=== PATIENT | female | born 1950 | race Caucasian/White ===

== ENCOUNTER 2016-10-29 19:17 | Inpatient (IN) | payer MEDICARE, OTHER ==
[~2016-10-29] VITALS: Ht 154.9 cm; Wt 43.1 kg
[2016-10-29] VITALS (7 sets, daily range): BP systolic 89–137; BP diastolic 38–71
--- NOTE | 2016-10-29 19:20 | NUR ---
66 YO FEMALE BB RA FROM SNF. PT IS ALERT X 0, PT IS NON VERBAL, PER EMS THIS IS BASE LINE FOR PATIENT. PER EMS, FAMILY CALLED EMS DUE TO LOW 02 SAT. PT DS TO ER BED, PT GOWNED, PLACED ON COLOR TECHNICIAN. RECTAL TEMP SHOWS 104.9 AND HR OF 120'S. MD BARNETT NOTIFIED. ACTIVATED CODE SEPSIS. NOTED 20G LEFT WRIST IV STARTED BY EMS. AWAITING ORDERS FROM PROVIDER, WILL CONTINUE TO MONITOR
[2016-10-29] MEDS ORDERED: IPRATROPIUM NEB FS 0.5 MG/2.5 ML AMPUL.NEB NEB ONE (19:30)
[2016-10-29] MEDS ORDERED: ACETAMINOPHEN 650 MG/SUPP.RECT RC ONE ×2 (19:30→19:32)
[2016-10-29] MEDS ORDERED: ALBUTEROL FS 2.5 MG/3 ML VIAL.NEB CONTNEB ONE (19:30)
[2016-10-29] MEDS ORDERED: IV NS 0.9% 250 ML IV ONE (19:32)
[2016-10-29] MEDS ORDERED: IV SET PRIMARY 1 EA INFUS.SET MC ONE ×2 (19:32→19:47)
[2016-10-29] MEDS ORDERED: SECONDARY IV SET 1 EA INFUS.SET MC ONE ×2 (19:32→20:39)
[2016-10-29] MEDS ORDERED: IV NS 0.9% 1,000 ML ONE ×2 (19:32→19:47)
[2016-10-29] MEDS ORDERED: IPRATROPIUM NEB FS 0.5 MG/2.5 ML AMPUL.NEB ONE (19:33)
[2016-10-29] MEDS ORDERED: ALBUTEROL FS 2.5 MG/3 ML VIAL.NEB ONE (19:33)
--- NOTE | 2016-10-29 19:40 | NUR ---
MEDICATED PT ORDERED
--- NOTE | 2016-10-29 19:44 | NUR ---
RADIOLOGY TEAM AT BED SIDE FOR X RAY
--- NOTE | 2016-10-29 19:44 | NUR ---
1.5mg atrovent administered per md order. confirmed verbally with md Addendum: 10/29/16 at 1944 by FERNANDA CASILLAS RT Amended: Links added.
[2016-10-29 19:50] LABS: BASOPHILS # (AUTO) 0.5 /CMM (0.0-0.2); BASOPHILS % (AUTO) 3.6 % (0.0-2.0); HEMATOCRIT 38 % (33-45); HEMOGLOBIN 11.6 g/dL (11.5-14.8); LYMPHOCYTES # (AUTO) 1.3 /CMM (0.8-4.8); LYMPHOCYTES % (AUTO) 9.6 % (20.0-44.0); MEAN CORPUSCULAR HEMOGLOBIN 30 PG (26.0-33.0); MEAN CORPUSCULAR HGB CONC 31 g/dl (31.0-36.0); MEAN CORPUSCULAR VOLUME 97 fL (82-100); MONOCYTES # (AUTO) 0.3 /CMM (0.1-1.30); MONOCYTES % (AUTO) 2.1 % (2.0-12.0); NEUTROPHILS # (AUTO) 11.1 /CMM (1.8-8.9); NEUTROPHILS % (AUTO) 84.7 % (43.0-81.0); PLATELET COUNT (AUTO) 296 /CMM (150-450); RDW COEFFICIENT OF VARIATION 14.8 (11.5-15.0); RED BLOOD CELL COUNT(AUTO) 3.87 MIL/uL (4.0-5.2); WHITE BLOOD COUNT (AUTO) 13.2 K/uL (4.3-11.0)
[2016-10-29] MEDS ORDERED: MULT-70 PO (19:52)
[2016-10-29] MEDS ORDERED: ACET-868 PO (19:52)
[2016-10-29] MEDS ORDERED: BISA10SU61 RC (19:52)
[2016-10-29] MEDS ORDERED: FERR-58 PO (19:52)
[2016-10-29] MEDS ORDERED: HEPA500014 SQ (19:52)
[2016-10-29] MEDS ORDERED: LEVE500T9 PO (19:52)
[2016-10-29] MEDS ORDERED: CRAN425C PO (19:52)
[2016-10-29] MEDS ORDERED: INSU100V7 SQ (19:52)
[2016-10-29] MEDS ORDERED: DOCU-25 PO (19:52)
[2016-10-29] MEDS ORDERED: LATA2.5D2 EACHEYE (19:52)
[2016-10-29] MEDS ORDERED: ONDA4TAB5 PO (19:52)
[2016-10-29] MEDS ORDERED: BENA5TAB2 PO (19:52)
[2016-10-29] MEDS ORDERED: SENN8.6T6 PO (19:52)
[2016-10-29] MEDS ORDERED: FAMO20TA8 PO (19:52)
[2016-10-29] MEDS ORDERED: MINO2.5T2 PO (19:52)
[2016-10-29] MEDS ORDERED: MAGN400O6 PO (19:52)
[2016-10-29] MEDS ORDERED: NA P133E RC (19:52)
[2016-10-29] MEDS ORDERED: CLON0.1T PO (19:52)
[2016-10-29] MEDS ORDERED: CARV12.5 PO (19:52)
[2016-10-29] MEDS ORDERED: INDA2.5T5 PO (19:52)
[2016-10-29] MEDS ORDERED: CRAN3875 PO (19:52)
[2016-10-29] MEDS ORDERED: OMEP20CA10 PO (19:52)
[2016-10-29] MEDS ORDERED: IV NS 0.9% 1,000 ML BAG IV ONE ×2 (20:00)
[2016-10-29 20:06] LABS: PROTHROMBIN TIME 10.5 SECS (9.5-12.7)
[2016-10-29 20:07] LABS: ALANINE AMINOTRANSFERASE 15 U/L (12-78); ALKALINE PHOSPHATASE 110 U/L (46-116); ASPARTATE AMINOTRANSFERASE 11 U/L (15-37); BILIRUBIN,DIRECT 0.1 mg/dL (0.0-0.2); BILIRUBIN,TOTAL 0.2 mg/dL (0.2-1.0); CALCIUM, SERUM 9.6 mg/dL (8.5-10.1); CARBON DIOXIDE 23 mmol/L (21-32); CHLORIDE 112 mmol/L (98-107); CREATININE 2.9 mg/dL (0.6-1.3); GFR 16 mL/min (>60); POTASSIUM 3.6 mmol/L (3.5-5.1); SODIUM SERUM 152 mmol/L (136-145); TOTAL PROTEIN, SERUM 8.3 g/dL (6.4-8.2)
[2016-10-29 20:10] LABS: TROPONIN I 0.053 ng/mL (0.00-0.056)
[2016-10-29 20:14] LABS: APPEARANCE,URINE SL CLOUDY (CLEAR); BILIRUBIN,URINE NEGATIVE (NEGATIVE); BLOOD, URINE 2+ Ery/uL (NEGATIVE); COLOR,URINE YELLOW (YELLOW); KETONES,URINE NEGATIVE (NEGATIVE); LEUKOCYTE ESTERASE ,URINE NEGATIVE (NEGATIVE); NITRITE, URINE NEGATIVE (NEGATIVE); PROTEIN,URINE 2+ mg/dl (NEGATIVE); UGLUCOSE 3+ mg/dL (NEGATIVE); UROBILINOGEN,URINE 0.2 EU/dL (0.2)
[2016-10-29 20:20] LABS: CLINITEST,URINE 1%
[2016-10-29 20:22] LABS: ADD URINE CULTURE YES; BACTERIA,URINE Many /HPF (None Seen); SQUAMOUS EPITHELIAL CELL,UR Moderate /HPF (None Seen)
[2016-10-29] MEDS ORDERED: IV SET PRIMARY PUMP SET 1 EA INFUS.SET MC ONE ×2 (20:24→20:39)
[2016-10-29 20:27] LABS: LACTIC ACID 4.4 mmol/L (0.4-2.0)
[2016-10-29 20:31] LABS: UREA NITROGEN, BLOOD 98 mg/dL (7-18)
[2016-10-29 20:38] LABS: GLUCOSE 1113 mg/dL (74-106)
[2016-10-29] MEDS ORDERED: IV D5W 250 ML IV ONE (20:38)
[2016-10-29] MEDS ORDERED: VANCOMYCIN 1 GM VIAL ONE (20:38)
[2016-10-29] MEDS ORDERED: PIPERACILLIN /TAZOBACTAM 2.25 G VIAL IV ONE (20:38)
[2016-10-29] MEDS ORDERED: IV D5W 50 ML IV ONE (20:39)
--- NOTE | 2016-10-29 20:57 | NUR ---
PATIENT ASSIGNED TO ICU 257
[2016-10-29] MEDS ORDERED: INSULIN REGULAR, HUMAN 100 UNIT in IV NS 0.9% 99 ML IV PRN ×4 (21:00→22:00)
[2016-10-29] MEDS ORDERED: VANCOMYCIN 1 GM in IV D5W 250 ML IV ONE (21:00)
[2016-10-29] MEDS ORDERED: PIPERACILLIN /TAZOBACTAM 2.25 G in IV D5W 50 ML IV ONE (21:00)
--- NOTE | 2016-10-29 21:04 | NUR ---
PAGED DR. ROBBIE MACIAS
--- NOTE | 2016-10-29 21:31 | NUR ---
MEDICATED PT ORDERED
--- NOTE | 2016-10-29 21:41 | NUR ---
TRANSPORTED PT TO ICU BED WITHOUT INCIDENT
[2016-10-29 21:46] LABS: ABG BASE EXCESS -5.5 mmol/L; ABG PCO2 38.1 mmHg (35.0-45.0); ABG PH 7.335 (7.350-7.450); ABG PO2 67.3 mmHg (75.0-100.0); ABG TOTAL HEMOGLOBIN 10.2 G/dL (12.0-16.0); MetHb 0.5 % (0.0-1.5); O2Hb 90.5 % (94.0-97.0); SITE, ABG Right Radial; VENT MODE, BG 8L SIMPLE MASK
--- NOTE | 2016-10-29 21:50 | NUR ---
ICU.RN RECEIVED PT DIRECT FROM ER VIA [facility] TO ROOM 257 W/ ADMITTING DX OF SEPSIS AND DKA.ON INSULIN DRIP AT 3.9 UNITS PER HR.PT AWAKE ORIENTED TO NAME AND PLACE.FAMILY VISITING AT BEDSIDE,CONDITION REPORT GIVEN.RECEIVING LAST 500ML NS BOLUS FROM ER.DR AVALOS HERE TO SEE PT.
[2016-10-29] MEDS ORDERED: LATANOPROST EYE DROP 0.005% 2.5 ML BOTTLE EACHEYE SCH (22:00)
[2016-10-29] MEDS ORDERED: ONDANSETRON HCL/PF 4 MG/2 ML VIAL IVP PRN (22:00)
[2016-10-29] MEDS ORDERED: MORPHINE SULFATE INJ 2 MG/ML DISP.SYRIN IV PRN (22:00)
--- NOTE | 2016-10-29 23:00 | NUR ---
ICU/RN ACCU CHECK DONE, BLOOD SUGAR>600MG/DL.DR AVALOS NOTIFIED.ORDERED BLOOD GLUCOSE.INSULIN DRIP INCREASED TO 7UNITS/HR.
[2016-10-29] MEDS: BLOOD SUGAR DIAGNOSTIC 1 EACH STRIP IN SCH (23:02)
[2016-10-29] MEDS: IV NS 0.9% 1,000 ML IV PRN (23:37)
--- NOTE | 2016-10-29 23:45 | NUR ---
ICU/RN BLOOD [id number]=210YF/DL.INSULIN RIP AT 7UNITS/HR.
[2016-10-30] VITALS (31 sets, daily range): BP systolic 95–168; BP diastolic 36–94
[2016-10-30] MEDS ORDERED: diphenhydrAMINE HCL 50 MG/ML VIAL ONE
[2016-10-30] MEDS ORDERED: diphenhydrAMINE HCL 50 MG/ML VIAL IV ONE
[2016-10-30] MEDS: BLOOD SUGAR DIAGNOSTIC 1 EACH STRIP IN SCH ×15 (00:18→18:07)
[2016-10-30] MEDS ORDERED: LATANOPROST EYE DROP 0.005% 2.5 ML BOTTLE ONE (00:26)
[2016-10-30] MEDS: IV NS 0.9% 1,000 ML IV PRN ×2 (00:44→05:01)
--- NOTE | 2016-10-30 00:50 | NUR ---
ICU/RN BLOOD [id number]=529HT/DL,NO CHANGE IN INSULIN DRIP.
--- NOTE | 2016-10-30 01:03 | NUR ---
ICU/RN INSULIN DRIP=7UNITS PER HR.PER FINGER STICK.
[2016-10-30 03:01] LABS: BASOPHILS % (AUTO) 0.2 % (0.0-2.0); HEMATOCRIT 36 % (33-45); HEMOGLOBIN 11.4 g/dL (11.5-14.8); LYMPHOCYTES # (AUTO) 1.2 /CMM (0.8-4.8); LYMPHOCYTES % (AUTO) 11.2 % (20.0-44.0); MEAN CORPUSCULAR HEMOGLOBIN 30 PG (26.0-33.0); MEAN CORPUSCULAR HGB CONC 32 g/dl (31.0-36.0); MEAN CORPUSCULAR VOLUME 94 fL (82-100); MONOCYTES # (AUTO) 0.1 /CMM (0.1-1.30); MONOCYTES % (AUTO) 0.6 % (2.0-12.0); NEUTROPHILS # (AUTO) 9.1 /CMM (1.8-8.9); PLATELET COUNT (AUTO) 219 /CMM (150-450); RDW COEFFICIENT OF VARIATION 14.4 (11.5-15.0); RED BLOOD CELL COUNT(AUTO) 3.81 MIL/uL (4.0-5.2); WHITE BLOOD COUNT (AUTO) 10.4 K/uL (4.3-11.0)
[2016-10-30 03:13] LABS: CALCIUM, SERUM 9.1 mg/dL (8.5-10.1); CREATININE 2.4 mg/dL (0.6-1.3); MAGNESIUM 2.2 mg/dL (1.8-2.4); PHOSPHORUS 1.7 mg/dL (2.5-4.9); POTASSIUM 3.2 mmol/L (3.5-5.1)
[2016-10-30 03:25] LABS: THYROID STIMULATING HORMONE 0.366 uIU/mL (0.358-3.74)
--- NOTE | 2016-10-30 04:00 | NUR ---
iICU/RN PT.COUGHING AND VOMITING NGT CONNECTED TO SUCTION.DRAINED 300ML CURDLED YELLOW DRAINAGE.TUBE FEEDING DC'D FOR NOW.SMALL CONDOM CATH APPLIED W/ DIFFICULTY DRAINING CLEAR YELLOW URINE.BED BATH DONE.
[2016-10-30] MEDS ORDERED: IV NS 0.9% 1,000 ML ONE (04:05)
[2016-10-30] MEDS ORDERED: PIPERACILLIN /TAZOBACTAM 4.5 G in IV D5W 50 ML IV SCH (05:00)
[2016-10-30] MEDS ORDERED: PIPERACILLIN /TAZOBACTAM 2.25 G VIAL IV ONE (05:12)
[2016-10-30] MEDS ORDERED: IV D5W 50 ML IV ONE (05:12)
[2016-10-30] MEDS ORDERED: SECONDARY IV SET 1 EA INFUS.SET MC ONE ×2 (05:54→09:59)
[2016-10-30] MEDS ORDERED: IV D5/0.45 NACL 1,000 ML IV PRN (06:00)
--- NOTE | 2016-10-30 06:00 | NUR ---
ICU/RN ACCU CHECK DONE Q1HR.AND DRIP ADJUSTED TO RESULT,CURRENTLY AT 0.5UNIT/HR.
--- NOTE | 2016-10-30 08:00 | NUR ---
TEMP 103.1 TYLENOL AND COOLING MEASURES INITIATED. VSS INSULIN GTT TITRATED PER PROTOCOL. KCL REPLACEMENT ORDERS OBTAINED.
[2016-10-30] MEDS: PANTOPRAZOLE 40 MG VIAL IV SCH (08:36)
[2016-10-30] MEDS: ACETAMINOPHEN 650 MG/SUPP.RECT RC PRN ×2 (08:37→16:14)
[2016-10-30] MEDS: HEPARIN SODIUM, PORCINE 5000 UNITS/1 ML VIAL SQ SCH ×2 (08:49→20:04)
[2016-10-30] MEDS ORDERED: IV SET PRIMARY PUMP SET 1 EA INFUS.SET MC ONE ×2 (08:52→09:59)
[2016-10-30] MEDS: POTASSIUM CL. PREMIX PERIPHER. 50 ML IV SCH ×8 (08:57→17:57)
[2016-10-30] MEDS ORDERED: LEVETIRACETAM (250 MG) 250 MG TABLET PO SCH (09:00)
[2016-10-30] MEDS ORDERED: IV D5/0.45 NACL 1,000 ML IV SCH (09:00)
[2016-10-30 09:32] LABS: TROPONIN I 0.093 ng/mL (0.00-0.056)
[2016-10-30] MEDS ORDERED: FEE PK DOSING 1 MIN EA MC ONE (10:06)
[2016-10-30] MEDS: Potassium Phosphate meq 11 MEQ in IV D5W 100 ML IV SCH ×2 (10:17→14:27)
[2016-10-30] MEDS: LEVETIRACETAM (500MG) 500 MG in IV NS 0.9% 100 ML IV SCH ×2 (10:18→20:01)
[2016-10-30] MEDS ORDERED: IV NS 0.9% 1,000 ML IV PRN (11:00)
[2016-10-30] MEDS: diphenhydrAMINE HCL 50 MG/ML VIAL IV PRN ×2 (11:01→17:08)
[2016-10-30] MEDS: PIPERACILLIN /TAZOBACTAM 2.25 G in IV D5W 50 ML IV SCH ×2 (13:33→17:08)
[2016-10-30 14:24] LABS: CREATININE 1.8 mg/dL (0.6-1.3); POTASSIUM 3.4 mmol/L (3.5-5.1)
[2016-10-30] MEDS: IV D5/0.45 NACL 1,000 ML IV PRN ×2 (14:27→20:01)
--- NOTE | 2016-10-30 14:50 | NUR ---
1400 BS 89, BNP OBTAINED REPORTED TO DR ROSALES, INSULIN GTT D/TOM
--- NOTE | 2016-10-30 16:00 | NUR ---
TEMP 102.9 TYLENOL AND COOLING MEASURES INITIATED. ASSISTED WITH BED AND BATH. STOOL C DIF SENT, BLOOD CULTURES SENT.
[2016-10-30] MEDS ORDERED: ACETYLCYSTEINE 10% SOLN 400 MG/4 ML VIAL NEB SCH (17:00)
[2016-10-30] MEDS: INSULIN REGULAR, HUMAN 100 UNIT/ML 3 ML VIAL SQ PRN ×2 (18:09→23:59)
[2016-10-30] MEDS: MORPHINE SULFATE INJ 2 MG/ML DISP.SYRIN IV PRN (19:02)
--- NOTE | 2016-10-30 19:20 | NUR ---
APPLICATION SUPPORT INTERN RCD PT W/DX DKA, PNA; PT IS ALERT VERY AGITATED; CONSTANTLY SCRATCHING HER LEGS AND STOMACH AREA. PT NOTED TO MULTIPLE TIMES ATTEMPTING TO GET OUT BED. SOFT WRIST RESTRAINT TO RIGHT ARM PT CONTINUES TO PULL ON TUBING. PT YELLING OUT FOR HELP KICKING LEGS AROUND. NSR -ST ON MONITOR. 10 L SIMPLE MASK 100% SATURATION NO DISTRESS NOTED. DIAZ CATHETER DRAINING YELLOW CLOUDY URINE. REDNESS NOTED TO ARMS AND THIGHS. D5 1/2 NS @ 250 ML/HR VIA OLIVIA MIDLINE. HOB ELEVATED TO 40 DEGREES. PT IS NPO AT THIS TIME; PENDING SWALLOW EVAL FOR MORNING.
[2016-10-30] MEDS: ACETYLCYSTEINE 10% SOLN 400 MG/4 ML VIAL NEB SCH (19:36)
[2016-10-30] MEDS: ALBUTEROL HALF STRENGTH 1.25 MG/3 ML VIAL.NEB NEB SCH (19:36)
--- NOTE | 2016-10-30 20:00 | NUR ---
MUSIC THERAPY SPECIALIST PT CONTINUES TO BE RESTLESS. CONTINUE TO MONITOR.
[2016-10-30] MEDS: Z GUARD REMEDY 2 OZ OINT TP SCH (20:59)
[2016-10-30] MEDS ORDERED: VANCOMYCIN 500 MG in IV D5W 100 ML IV SCH (21:00)
[2016-10-30] MEDS: LATANOPROST EYE DROP 0.005% 2.5 ML BOTTLE EACHEYE SCH (21:00)
[2016-10-30] MEDS: INSULIN DETEMIR 100 UNIT/ML CARTRIDGE SQ SCH (21:55)
[2016-10-31] VITALS (26 sets, daily range): BP systolic 115–176; BP diastolic 46–111
[2016-10-31] MEDS: IV D5/0.45 NACL 1,000 ML IV PRN ×2 (02:30→08:09)
--- NOTE | 2016-10-31 04:44 | NUR ---
BAR CATCHER PT RESTING COMFORTABLY. TOLERATED BATH WELL. NO RESTLESS/ANXIETY NOTED AT THIS TIME. HOB ELEVATED AT 40 DEGREES.
[2016-10-31 05:03] LABS: BASOPHILS % (AUTO) 0.1 % (0.0-2.0); EOSINOPHILS # (AUTO) 0.4 /CMM (0.0-0.7); HEMATOCRIT 25 % (33-45); HEMOGLOBIN 7.9 g/dL (11.5-14.8); LYMPHOCYTES # (AUTO) 1.3 /CMM (0.8-4.8); LYMPHOCYTES % (AUTO) 12.5 % (20.0-44.0); MEAN CORPUSCULAR HEMOGLOBIN 31 PG (26.0-33.0); MEAN CORPUSCULAR HGB CONC 32 g/dl (31.0-36.0); MEAN CORPUSCULAR VOLUME 94 fL (82-100); MONOCYTES % (AUTO) 0.4 % (2.0-12.0); NEUTROPHILS # (AUTO) 8.5 /CMM (1.8-8.9); PLATELET COUNT (AUTO) 170 /CMM (150-450); RDW COEFFICIENT OF VARIATION 14.5 (11.5-15.0); WHITE BLOOD COUNT (AUTO) 10.2 K/uL (4.3-11.0)
[2016-10-31 05:26] LABS: TROPONIN I 0.086 ng/mL (0.00-0.056)
[2016-10-31 05:28] LABS: BILIRUBIN,TOTAL 0.5 mg/dL (0.2-1.0); CALCIUM, SERUM 7.9 mg/dL (8.5-10.1); CREATININE 1.7 mg/dL (0.6-1.3); MAGNESIUM 1.9 mg/dL (1.8-2.4); PHOSPHORUS 2.4 mg/dL (2.5-4.9); POTASSIUM 4.5 mmol/L (3.5-5.1); TOTAL PROTEIN, SERUM 5.8 g/dL (6.4-8.2)
[2016-10-31 05:46] LABS: ALBUMIN 1.2 g/dL (3.4-5.0)
[2016-10-31] MEDS: MORPHINE SULFATE INJ 2 MG/ML DISP.SYRIN IV PRN ×2 (05:52→10:57)
[2016-10-31] MEDS: INSULIN REGULAR, HUMAN 100 UNIT/ML 3 ML VIAL SQ PRN ×2 (05:52→11:43)
[2016-10-31] MEDS: BLOOD SUGAR DIAGNOSTIC 1 EACH STRIP IN SCH ×4 (05:53→18:14)
[2016-10-31] MEDS: PIPERACILLIN /TAZOBACTAM 2.25 G in IV D5W 50 ML IV SCH ×5 (05:53→17:45)
[2016-10-31] MEDS: PANTOPRAZOLE 40 MG VIAL IV SCH (08:08)
[2016-10-31] MEDS: diphenhydrAMINE HCL 50 MG/ML VIAL IV PRN (08:08)
[2016-10-31] MEDS: Z GUARD REMEDY 2 OZ OINT TP SCH ×2 (08:11→17:45)
[2016-10-31] MEDS: LEVETIRACETAM (500MG) 500 MG in IV NS 0.9% 100 ML IV SCH ×2 (08:12→21:01)
[2016-10-31] MEDS: HEPARIN SODIUM, PORCINE 5000 UNITS/1 ML VIAL SQ SCH ×2 (08:21→21:03)
[2016-10-31] MEDS: ALBUTEROL HALF STRENGTH 1.25 MG/3 ML VIAL.NEB NEB SCH ×2 (08:27→20:04)
[2016-10-31] MEDS: ACETYLCYSTEINE 10% SOLN 400 MG/4 ML VIAL NEB SCH ×2 (08:28→14:33)
[2016-10-31] MEDS: IV D5 / 0.2% NACL 1,000 ML IV PRN (10:00)
--- NOTE | 2016-10-31 11:30 | NUR ---
WOUND CARE CONSULT: PT PRESENTS WITH INCONTINENCE. SLIGHT BRUISING NOTED TO LEFT HIP, PRESENT ON ADMISSION PHOTO. PT ON FIRST STEP MATTRESS. ALL SKIN PROTECTION MEASURES IN PLACE AND DISCUSSED WITH NURSING STAFF. WILL SEE PRN. NIXON IN AGREEMENT WITH PLAN OF CARE. Addendum: 10/31/16 at 1132 by LACIE BUI WNDNU Amended: Links added.
[2016-10-31] MEDS: ACETAMINOPHEN 650 MG/SUPP.RECT RC PRN ×2 (12:19→17:45)
[2016-10-31 14:08] LABS: ABG BASE EXCESS -5.6 mmol/L; ABG OXYGEN SATURATION 96.1 % (92.0-98.5); ABG PCO2 32.9 mmHg (35.0-45.0); ABG PH 7.376 (7.350-7.450); ABG PO2 83.8 mmHg (75.0-100.0); ABG TOTAL HEMOGLOBIN 10.1 G/dL (12.0-16.0); AaDO2 199.6 mmHg; COHb 1.1 % (0.5-1.5); MetHb 0.7 % (0.0-1.5); O2Hb 94.4 % (94.0-97.0); SITE, ABG Right Radial; VENT MODE, BG SIMPLE MASK
--- NOTE | 2016-10-31 15:00 | NUR ---
SWALLOW EVAL DEFERRED TO TOMORROW PT IS TOO LETHARGIC TODAY. ABG ON 6L MASK OBTAINED REPORTED TO DR SHAFFER, NO NEW ORDERS.
[2016-10-31] MEDS ORDERED: Sodium Phosphate 15 MMOL in IV D5W 250 ML IV ONE (16:00)
[2016-10-31] MEDS: DEXTROSE 50%-WATER 50 ML DISP.SYRIN IV PRN (18:29)
--- NOTE | 2016-10-31 18:35 | NUR ---
DURING 1700 BED BATH TEMP 101.4 TYLENOL GIVEN. PT NOTED TO HAVE CONTINUES COUGH AND SAT IN 80TH. PT SUCTIONED NASALLY AND ORALLY FOR COPIOUS, THICK, LIGHT BROWN SECRETIONS. SAT REMAINED IT 80TH POST SUCTIONING AND PT PLACED ON NON-REBREATHER MASK 13L. PT SATS 95% -99%. PT HAS DRY CONTINUES COUGH STILL. AT 1820 PT CONFUSED, BUT COOPERATIVE, WHICH IS HER USUAL LEVEL OF FUNCTIONING. ACCU CHECK - BS56 AND THAN 49 ON REPEATED DRAW. LAB NOTIFIED FOR STAT GLUCOSE DRAW. D50 IV ADMINISTERED. BS RECHECKED IN 15 MIN. NOW 185.
--- NOTE | 2016-10-31 20:00 | NUR ---
NETWORK ENGINEER ADMINISTRATOR INITIAL NOTE RCD PT W/DX PNA; PT IS AWAKE ABLE TO FOLLOW SIMPLE COMMANDS. PT WITH EPISODES OF AGITATION/CONFUSION W/SOFT WRIST RESTRAINT ON RIGHT HAND. PT W/DIMINISHED LUNG SOUNDS ON NON REBREATHER 15 L. NO RESP DIST NOTED. NO TEMP AT THIS TIME. NSR ON MONITOR. DIAZ CATHETER DRAINING SMALL AMOUNT OF YELLOW URINE. HOB ELEVATED AT 40 DEGREES. BED LOCKED AND IN LOW POSITION. ORDER FOR CHEST PT. WILL CONTINUE TO MONITOR.
[2016-10-31] MEDS ORDERED: VANCOMYCIN 0.75 GM in IV D5W 250 ML IV SCH (21:00)
[2016-10-31] MEDS: LATANOPROST EYE DROP 0.005% 2.5 ML BOTTLE EACHEYE SCH (21:02)
[2016-10-31] MEDS: INSULIN DETEMIR 100 UNIT/ML CARTRIDGE SQ SCH (21:04)
--- NOTE | 2016-10-31 22:00 | NUR ---
GLASS SCIENCE ENGINEER CHEST PT DONE BY RT. BED RESTING CALMLY IN BED. REPOSITIONED. ORAL CARE RENDERED.
[2016-11-01] VITALS (26 sets, daily range): BP systolic 115–172; BP diastolic 49–118
[2016-11-01] MEDS: PIPERACILLIN /TAZOBACTAM 2.25 G in IV D5W 50 ML IV SCH ×4 (00:01→17:02)
[2016-11-01] MEDS: BLOOD SUGAR DIAGNOSTIC 1 EACH STRIP IN SCH ×4 (00:01→17:00)
--- NOTE | 2016-11-01 02:00 | NUR ---
WET WASH ASSEMBLER VSS. PT REPOSITIONED. ORAL CARE, ECG ELECTRODES CHANGED AND FULL BED BATH GIVEN. PT TOLERATED WELL.
[2016-11-01] MEDS: IV D5 / 0.2% NACL 1,000 ML IV PRN (02:15)
[2016-11-01 05:03] LABS: BASOPHILS % (AUTO) 0.1 % (0.0-2.0); CREATININE 1.5 mg/dL (0.6-1.3); EOSINOPHILS # (AUTO) 0.8 /CMM (0.0-0.7); EOSINOPHILS % (AUTO) 7.3 % (0.0-6.0); HEMATOCRIT 26 % (33-45); HEMOGLOBIN 8.6 g/dL (11.5-14.8); LYMPHOCYTES # (AUTO) 1.4 /CMM (0.8-4.8); LYMPHOCYTES % (AUTO) 12.7 % (20.0-44.0); MEAN CORPUSCULAR HEMOGLOBIN 31 PG (26.0-33.0); MEAN CORPUSCULAR HGB CONC 33 g/dl (31.0-36.0); MEAN CORPUSCULAR VOLUME 94 fL (82-100); MONOCYTES # (AUTO) 0.1 /CMM (0.1-1.30); MONOCYTES % (AUTO) 0.8 % (2.0-12.0); NEUTROPHILS % (AUTO) 79.1 % (43.0-81.0); PLATELET COUNT (AUTO) 167 /CMM (150-450); POTASSIUM 4.9 mmol/L (3.5-5.1); RDW COEFFICIENT OF VARIATION 14.8 (11.5-15.0); WHITE BLOOD COUNT (AUTO) 11.3 K/uL (4.3-11.0)
[2016-11-01 05:08] LABS: MAGNESIUM 1.6 mg/dL (1.8-2.4); PHOSPHORUS 2.9 mg/dL (2.5-4.9)
--- NOTE | 2016-11-01 05:57 | NUR ---
DESIGN INTERN PT AWAKE; REQUESTING FOOD. PENDING SWALLOW EVAL.
[2016-11-01] MEDS: INSULIN REGULAR, HUMAN 100 UNIT/ML 3 ML VIAL SQ PRN ×2 (06:00)
--- NOTE | 2016-11-01 07:31 | NUR ---
GRAPE CRUSHER RECEIVED PATIENT FROM THE PREVIOUS SHIFT. PATIENT IN BED. RESTING COMFORTABLY. ON SIMPLE MASK. TEMP 99.5. HYPERTENSIVE AND BP MONITORED.TURNED AND REPOSITIONED FOR COMFORT AND WOUND PREVENTION. WILL CONTINUE TO MONITOR AND PROVIDE CARE.
[2016-11-01] MEDS: ACETYLCYSTEINE 10% SOLN 400 MG/4 ML VIAL NEB SCH ×2 (07:35→17:00)
[2016-11-01] MEDS: ALBUTEROL HALF STRENGTH 1.25 MG/3 ML VIAL.NEB NEB SCH ×2 (07:35→19:32)
[2016-11-01] MEDS: LEVETIRACETAM (500MG) 500 MG in IV NS 0.9% 100 ML IV SCH ×3 (08:04→20:33)
[2016-11-01] MEDS: Z GUARD REMEDY 2 OZ OINT TP SCH ×2 (08:04→17:01)
[2016-11-01] MEDS: PANTOPRAZOLE 40 MG VIAL IV SCH (08:06)
[2016-11-01] MEDS: HEPARIN SODIUM, PORCINE 5000 UNITS/1 ML VIAL SQ SCH ×2 (08:06→20:29)
[2016-11-01] MEDS: MORPHINE SULFATE INJ 2 MG/ML DISP.SYRIN IV PRN ×2 (08:37→20:07)
--- NOTE | 2016-11-01 09:06 | NUR ---
BICYCLE MESSENGER NASOTRACHEL SUCTION PROVIDED BY RT. THICK MODERATE AMOUNTS REMOVED. OXYGENATION MONITORED. SINUS TACH ON MONITOR.SEEN BY MEDICAL DEVICE.
[2016-11-01] MEDS ORDERED: IV NS 0.9% 250 ML IV ONE (09:20)
[2016-11-01] MEDS: Magnesium 1GM/D5W 100ML PREMIX 100 ML IV SCH ×2 (09:24→10:35)
[2016-11-01] MEDS ORDERED: IV SET PRIMARY PUMP SET 1 EA INFUS.SET MC ONE (10:01)
[2016-11-01] MEDS: ALBUMIN 25% 25 GM in PREMIX 1 EA IV SCH ×2 (10:44→17:53)
[2016-11-01] MEDS: FUROSEMIDE 40 MG/4 ML VIAL IV SCH ×2 (12:13→19:43)
--- NOTE | 2016-11-01 16:19 | NUR ---
LEADER ASSEMBLER PATIENT IN BED. RESTING COMFORTABLY. NO ACUTE DISTRESS. EVEN NON LABORED BREATHING PATTERN. TOLERATING NASAL CANNULA WELL. TEMP 99.8. SINUS RHYTHM ON MONITOR. STABLE BP. TURNED AND REPOSITIONED FOR COMFORT AND WOUND PREVENTION. WILL CONTINUE TO MONITOR AND PROVIDE CARE.
--- NOTE | 2016-11-01 19:06 | NUR ---
CLINICAL RESEARCH TECHNICIAN REPORT GIVEN TO RECEIVING RN FOR CONTINUITY OF CARE.
--- NOTE | 2016-11-01 19:30 | NUR ---
ICU/RN RECEIVED PT AWAKE ,ORIENTED TO NAME,RE-ORIENTED TO PLACE, TIME AND SURROUNDINGS.DOES NOT FOLLOW COMMANDS RESTLESS AND FIDGETY.GIVEN 1MG MORPHINE IVP,IN PREP FOR CT CHEST ANGIO ORDERED BY DR ROSALES.FAMILY AT BEDSIDE,CONDITION REPORT GIVEN AND ASKED FAMILY TO EXPLAIN PROCEDURE TO BE DONE.
--- NOTE | 2016-11-01 21:00 | NUR ---
ICU/RN. UNABLE TO BRING PT.FOR CT ANGIOGRAM OF CHEST PT RESTLESS,DOES NOT FOLLOW COMMANDS.
[2016-11-01] MEDS: VANCOMYCIN 500 MG in IV D5W 100 ML IV SCH (21:01)
[2016-11-01] MEDS: LATANOPROST EYE DROP 0.005% 2.5 ML BOTTLE EACHEYE SCH (21:03)
[2016-11-01] MEDS: INSULIN DETEMIR 100 UNIT/ML CARTRIDGE SQ SCH (22:00)
--- NOTE | 2016-11-01 22:30 | NUR ---
ICU/RN CLARIFICATION OF LEVEMIR ORDER CALLED TO LORENZO PHERESIS NURSE FOR [facility].LEVEMIR ORDER ON HOLD FOR NOW PT NPO AND NOT RECEIVING DEXTROSE.
[2016-11-02] VITALS (20 sets, daily range): BP systolic 101–203; BP diastolic 46–83
[2016-11-02] MEDS: PIPERACILLIN /TAZOBACTAM 2.25 G in IV D5W 50 ML IV SCH ×5 (00:02→23:26)
[2016-11-02] MEDS: INSULIN REGULAR, HUMAN 100 UNIT/ML 3 ML VIAL SQ PRN ×3 (00:10→18:38)
[2016-11-02] MEDS: BLOOD SUGAR DIAGNOSTIC 1 EACH STRIP IN SCH ×5 (00:11→23:26)
[2016-11-02] MEDS ORDERED: IV NS 0.9% 250 ML IV ONE (00:28)
[2016-11-02] MEDS ORDERED: IV NS 0.9% 250 ML BAG IV PRN (01:30)
[2016-11-02] MEDS: ALBUMIN 25% 25 GM in PREMIX 1 EA IV SCH (03:33)
[2016-11-02] MEDS: FUROSEMIDE 40 MG/4 ML VIAL IV SCH (04:37)
[2016-11-02 04:53] LABS: BASOPHILS % (AUTO) 0.2 % (0.0-2.0); EOSINOPHILS # (AUTO) 0.3 /CMM (0.0-0.7); EOSINOPHILS % (AUTO) 2.9 % (0.0-6.0); HEMATOCRIT 26 % (33-45); HEMOGLOBIN 8.4 g/dL (11.5-14.8); LYMPHOCYTES # (AUTO) 1.1 /CMM (0.8-4.8); LYMPHOCYTES % (AUTO) 12.3 % (20.0-44.0); MEAN CORPUSCULAR HEMOGLOBIN 30 PG (26.0-33.0); MEAN CORPUSCULAR HGB CONC 33 g/dl (31.0-36.0); MEAN CORPUSCULAR VOLUME 92 fL (82-100); MONOCYTES # (AUTO) 0.2 /CMM (0.1-1.30); MONOCYTES % (AUTO) 1.9 % (2.0-12.0); NEUTROPHILS # (AUTO) 7.2 /CMM (1.8-8.9); NEUTROPHILS % (AUTO) 82.7 % (43.0-81.0); PLATELET COUNT (AUTO) 114 /CMM (150-450); RDW COEFFICIENT OF VARIATION 14.2 (11.5-15.0); WHITE BLOOD COUNT (AUTO) 8.7 K/uL (4.3-11.0)
[2016-11-02 05:09] LABS: CALCIUM, SERUM 9.1 mg/dL (8.5-10.1); CREATININE 1.6 mg/dL (0.6-1.3); MAGNESIUM 2.1 mg/dL (1.8-2.4); PHOSPHORUS 4.3 mg/dL (2.5-4.9); POTASSIUM 3.7 mmol/L (3.5-5.1)
[2016-11-02] MEDS ORDERED: POTASSIUM CHLORIDE 20 MEQ TAB.PRT.SR PO SCH (08:00)
--- NOTE | 2016-11-02 08:00 | NUR ---
DIE CAST SUPERVISOR; ASSESSMENT RECEIVED PT AWAKE AND ORIENTED TO SELF. PT FORGETFUL AND CONFUSED. PT ON NASAL CANULA 5L/MIN. NOTED AV FISTULA TO LEFT UPPER ARM POSITIVE FOR THRILL AND BRUIT. DIAZ CATH INTACT DRAINING TO GRAVITY CLEAR YELLOW URINE. NO ACUTE DISTRESS NOTED. WILL CONTINUE TO MONITOR CLOSELY.
[2016-11-02] MEDS: ALBUTEROL HALF STRENGTH 1.25 MG/3 ML VIAL.NEB NEB SCH ×2 (08:02→19:31)
[2016-11-02] MEDS: ACETYLCYSTEINE 10% SOLN 400 MG/4 ML VIAL NEB SCH ×2 (08:03→17:39)
[2016-11-02] MEDS: PANTOPRAZOLE 40 MG VIAL IV SCH (08:34)
[2016-11-02] MEDS: FUROSEMIDE 100 MG/10 ML VIAL IV SCH ×3 (08:35→15:13)
[2016-11-02] MEDS: HEPARIN SODIUM, PORCINE 5000 UNITS/1 ML VIAL SQ SCH ×2 (08:35→21:47)
[2016-11-02] MEDS: LEVETIRACETAM (500MG) 500 MG in IV NS 0.9% 100 ML IV SCH ×2 (08:35→21:47)
[2016-11-02] MEDS: Z GUARD REMEDY 2 OZ OINT TP SCH ×2 (08:36→18:30)
[2016-11-02] MEDS ORDERED: IV SET PRIMARY PUMP SET 1 EA INFUS.SET MC ONE (09:29)
[2016-11-02] MEDS: POTASSIUM CL. PREMIX PERIPHER. 50 ML IV SCH ×4 (09:38→12:55)
--- NOTE | 2016-11-02 14:45 | NUR ---
MANUFACTURING ACCOUNTANT;TRANSFER TRANSFER PT TO [facility] TO ROOM 110-1 VIA BED WITH ACLS PROTOCOL. REPORT GIVEN TO JAMSHID CALDERÓN TO CONTINUE WITH POC.
--- NOTE | 2016-11-02 19:25 | NUR ---
RN NOTES PT RESTING IN BED COMFORTABLY, NO ACUTE CHANGE IN CONDITION NOTED. REMAINS ON NPO, WILL RE-EVAL ON SATURDAY PER REPORT. ALL DUE MEDS GIVEN, BS CHECKED SCHEDULED LAST BS 204MG/DL. 8 UNITS INSULIN GIVEN PER SS. KEPT PT CLEAN DRY AND COMFORTABLE. FC PATENT DRAINING YELLOW COLOR URINE. NOTED BMX1 BEFORE CHANGE OF SHIFT. MONITORED ACCORDINGLY. ENDORSED TO JULIA CALDERÓN FOR CONTINUITY OF CARE.
[2016-11-02] MEDS: VANCOMYCIN 500 MG in IV D5W 100 ML IV SCH (21:00)
[2016-11-02] MEDS: LATANOPROST EYE DROP 0.005% 2.5 ML BOTTLE EACHEYE SCH (21:47)
[2016-11-02] MEDS: ACETAMINOPHEN 650 MG/SUPP.RECT RC PRN (21:47)
[2016-11-02] MEDS: INSULIN DETEMIR 100 UNIT/ML CARTRIDGE SQ SCH (21:48)
[2016-11-03] VITALS (7 sets, daily range): BP systolic 92–147; BP diastolic 38–84
[2016-11-03] MEDS: PIPERACILLIN /TAZOBACTAM 2.25 G in IV D5W 50 ML IV SCH ×4 (05:18→23:55)
[2016-11-03] MEDS: BLOOD SUGAR DIAGNOSTIC 1 EACH STRIP IN SCH ×4 (05:18→23:56)
--- NOTE | 2016-11-03 07:00 | NUR ---
RN NOTES RECEIVED PT ON BED , AWAKE AND ORIENTED x1, PT FORGETFUL AND CONFUSED. RESPIRATION EVEN AND UNLABORED, ON 5L O2 N/C , NO SOB NOTED , LEFT UPPER ARM AV SHUNT POSITIVE FOR THRILL AND BRUIT. DIAZ CATH INTACT DRAINING TO GRAVITY CLEAR YELLOW URINE.SR UPx3, BED LOCKED AND IN LOW POSITION , WILL CONTINUE TO MONITOR PT CLOSELY AND NOTIFY MD FOR ANY SIGNIFICANT CHANGES .
[2016-11-03 07:35] LABS: ALBUMIN 2.5 g/dL (3.4-5.0); BILIRUBIN,TOTAL 0.9 mg/dL (0.2-1.0); CALCIUM, SERUM 9.4 mg/dL (8.5-10.1); CREATININE 2.5 mg/dL (0.6-1.3); POTASSIUM 3.3 mmol/L (3.5-5.1); TOTAL PROTEIN, SERUM 7.8 g/dL (6.4-8.2)
[2016-11-03] MEDS: ACETYLCYSTEINE 10% SOLN 400 MG/4 ML VIAL NEB SCH ×2 (08:00→17:00)
[2016-11-03] MEDS: ALBUTEROL HALF STRENGTH 1.25 MG/3 ML VIAL.NEB NEB SCH ×2 (08:00→20:00)
[2016-11-03] MEDS: PANTOPRAZOLE 40 MG VIAL IV SCH (08:12)
[2016-11-03] MEDS: HEPARIN SODIUM, PORCINE 5000 UNITS/1 ML VIAL SQ SCH ×2 (08:13→21:18)
[2016-11-03] MEDS: Z GUARD REMEDY 2 OZ OINT TP SCH ×2 (08:17→17:20)
[2016-11-03] MEDS: VANCOMYCIN 500 MG in IV D5W 100 ML IV SCH (08:21)
--- NOTE | 2016-11-03 09:00 | NUR ---
RN NOTES AM MIGUEL ÁNGELO GIVEN PER MARTHA PHARMACIST .
[2016-11-03] MEDS: LEVETIRACETAM (500MG) 500 MG in IV NS 0.9% 100 ML IV SCH ×2 (09:18→21:13)
--- NOTE | 2016-11-03 09:56 | NUR ---
RN NOTES NOTIFIED REGARDING NA =[id number].
[2016-11-03] MEDS ORDERED: IV D5/0.45 NACL 1,000 ML IV PRN (10:00)
[2016-11-03] MEDS ORDERED: SECONDARY IV SET 1 EA INFUS.SET MC ONE (11:32)
[2016-11-03] MEDS: INSULIN REGULAR, HUMAN 100 UNIT/ML 3 ML VIAL SQ PRN ×2 (11:41→23:55)
--- NOTE | 2016-11-03 12:00 | NUR ---
RN NOTES PT'S DAUGHTER INFORMED, REGARDING PEG PLACEMENT ON SATURDAY .
--- NOTE | 2016-11-03 13:46 | NUR ---
RN NOTES PT ENDORSED TO BOLA TIWARI FOR PT CARE CONTINUITY Addendum: 11/03/16 at 1348 by ILIR MYERS RN DISREGARD ABOVE CHARTING PLEASE , CHARTED ON WRONG PT
--- NOTE | 2016-11-03 18:00 | NUR ---
RN NOTES PT STABLE , RESPIRATION EVEN AND UNLABORED, NO DISTRESS NOTED , PT MEDICATED PER MD ORDER , SR UP x3, PT MEDICATED PER MD ORDER , NO SIGNIFICANT CHANGES NOTED ON THIS SHIFT
[2016-11-03] MEDS: INSULIN DETEMIR 100 UNIT/ML CARTRIDGE SQ SCH (21:17)
[2016-11-03] MEDS: LATANOPROST EYE DROP 0.005% 2.5 ML BOTTLE EACHEYE SCH (21:17)
[2016-11-04] VITALS: BP 129/55
--- NOTE | 2016-11-04 00:17 | NUR ---
RN:TELE: RT NOTIFIED AT BEGINNING OF SHIFT REGARDING MUCOMYST ORDER.
[2016-11-04 04:00] VITALS: BP 131/57
[2016-11-04] MEDS: PIPERACILLIN /TAZOBACTAM 2.25 G in IV D5W 50 ML IV SCH ×3 (05:26→17:44)
[2016-11-04] MEDS: DEXTROSE 50%-WATER 50 ML DISP.SYRIN IV PRN (05:35)
[2016-11-04] MEDS: BLOOD SUGAR DIAGNOSTIC 1 EACH STRIP IN SCH ×3 (05:39→17:45)
--- NOTE | 2016-11-04 06:52 | NUR ---
RN:TELE: PT BS 55 THEN 57 WHEN RECHECK. PT UNABLE TO SWALLOW D50 GIVEN PER MD ORDERS. BS RECHECKED AND IS OVER 200. WILL ENDORSE TO ONCOMING SHIFT. NO DISTRESS NOTED. PT RESTING COMFORTABLY.
[2016-11-04 07:31] LABS: BASOPHILS % (AUTO) 0.2 % (0.0-2.0); EOSINOPHILS # (AUTO) 0.3 /CMM (0.0-0.7); EOSINOPHILS % (AUTO) 3.3 % (0.0-6.0); HEMATOCRIT 28 % (33-45); HEMOGLOBIN 8.9 g/dL (11.5-14.8); LYMPHOCYTES # (AUTO) 1.2 /CMM (0.8-4.8); LYMPHOCYTES % (AUTO) 14.6 % (20.0-44.0); MEAN CORPUSCULAR HEMOGLOBIN 30 PG (26.0-33.0); MEAN CORPUSCULAR HGB CONC 32 g/dl (31.0-36.0); MEAN CORPUSCULAR VOLUME 92 fL (82-100); MONOCYTES # (AUTO) 0.1 /CMM (0.1-1.30); MONOCYTES % (AUTO) 1.4 % (2.0-12.0); NEUTROPHILS # (AUTO) 6.4 /CMM (1.8-8.9); NEUTROPHILS % (AUTO) 80.5 % (43.0-81.0); PLATELET COUNT (AUTO) 169 /CMM (150-450); RDW COEFFICIENT OF VARIATION 14.6 (11.5-15.0)
[2016-11-04] MEDS: ALBUTEROL HALF STRENGTH 1.25 MG/3 ML VIAL.NEB NEB SCH ×2 (07:50→20:38)
[2016-11-04] MEDS: ACETYLCYSTEINE 10% SOLN 400 MG/4 ML VIAL NEB SCH ×2 (07:51→20:38)
[2016-11-04 07:53] LABS: PHOSPHORUS 5.6 mg/dL (2.5-4.9)
[2016-11-04 08:00] VITALS: BP 126/42
--- NOTE | 2016-11-04 08:00 | NUR ---
RN INITIAL NOTE ` PT RECEIVED IN BED, RESTING COMFORTABLY, NO S/S OF RESPIRATORY DISTRESS OR SOB, HAS COUGH. ON TEL MONITOR SINUS RHYTHM. IV SITE C/D/I FLUSHED, AND PATENT. SKIN WARM AND DRY TO TOUCH. URINARY CATHETER PATENT, DRAINING WITH GRAVITY. NO S/S OF PAIN OR DISCOMFORT. SAFETY MEASURES IMPLEMENTED. WILL CONTINUE TO MONITOR.
[2016-11-04] MEDS ORDERED: ALBUMIN 25% 25 GM in PREMIX 1 EA IV SCH (08:30)
[2016-11-04 08:34] LABS: POTASSIUM 3.2 mmol/L (3.5-5.1)
[2016-11-04 08:35] LABS: CALCIUM, SERUM 8.8 mg/dL (8.5-10.1); CREATININE 2.4 mg/dL (0.6-1.3)
--- NOTE | 2016-11-04 08:41 | NUR ---
NAVAL GUNFIRE SPOTTER NOTE PER DR CASAS ORDER IVF CHANGED TO D51/2NS WITH 30 KCL MEQ AT 125 ML PER HOUR ALSO AWARE THAT K 3.2
[2016-11-04 08:47] LABS: BILIRUBIN,TOTAL 0.7 mg/dL (0.2-1.0)
[2016-11-04 08:48] LABS: ALBUMIN 2.1 g/dL (3.4-5.0); BILIRUBIN,DIRECT 0.3 mg/dL (0.0-0.2); TOTAL PROTEIN, SERUM 7.1 g/dL (6.4-8.2)
[2016-11-04] MEDS ORDERED: SECONDARY IV SET 1 EA INFUS.SET MC ONE (09:18)
[2016-11-04] MEDS: LEVETIRACETAM (500MG) 500 MG in IV NS 0.9% 100 ML IV SCH ×2 (09:18→21:02)
[2016-11-04] MEDS: PANTOPRAZOLE 40 MG VIAL IV SCH (09:18)
--- NOTE | 2016-11-04 09:30 | NUR ---
RN NOTE PHARMACY NOTIFIED ALBUMIN NOT VERIFIED.
[2016-11-04] MEDS: D5 IV PRN (09:32)
[2016-11-04] MEDS: HEPARIN SODIUM, PORCINE 5000 UNITS/1 ML VIAL SQ SCH ×2 (09:32→20:42)
[2016-11-04] MEDS: POTASSIUM CHLORIDE IV PRN (09:32)
[2016-11-04] MEDS: NACL IV PRN (09:32)
[2016-11-04] MEDS: Z GUARD REMEDY 2 OZ OINT TP SCH ×2 (09:33→17:44)
--- NOTE | 2016-11-04 10:07 | NUR ---
RACK PULLER NOTE SPOKE WITH DAUGHTER TELEPHONE CONSENT DONE FOR PEG PLACEMENT
[2016-11-04 12:00] VITALS: BP 132/66
[2016-11-04] MEDS: INSULIN REGULAR, HUMAN 100 UNIT/ML 3 ML VIAL SQ PRN ×2 (12:08→17:48)
--- NOTE | 2016-11-04 12:42 | NUR ---
MS RN NOTE SPOKE WITH PHARMACIST X2 NOTICED THAT ALBUMIN NOT VERIFIED YET SPOKE WITH GEORGINA . WILL F\U
[2016-11-04 16:00] VITALS: BP 126/52
--- NOTE | 2016-11-04 18:40 | NUR ---
RN CLOSING NOTE PT RESTING IN BED COMFORTABLY, ALL MD ORDERS CARRIED OUT. PT KEPT CLEAN AND DRY. IV SITE C/D/I. ALL SAFETY MEASURES IN PLACE AT ALL TIMES. REPORT WILL BE GIVEN TO PM RN FOR NATALIA.
[2016-11-04 20:00] VITALS: BP 145/56
[2016-11-04] MEDS: LATANOPROST EYE DROP 0.005% 2.5 ML BOTTLE EACHEYE SCH (20:43)
[2016-11-04] MEDS: INSULIN DETEMIR 100 UNIT/ML CARTRIDGE SQ SCH (22:00)
[2016-11-04] MEDS: VANCOMYCIN 500 MG in IV D5W 100 ML IV SCH (22:07)
[2016-11-05] VITALS: BP 132/67
[2016-11-05 04:00] VITALS: BP_SYST 124; BP_SYST 125; BP_DIAS 60; BP_DIAS 93
[2016-11-05] MEDS: BLOOD SUGAR DIAGNOSTIC 1 EACH STRIP IN SCH ×4 (06:52→17:12)
[2016-11-05] MEDS: ACETYLCYSTEINE 10% SOLN 400 MG/4 ML VIAL NEB SCH ×2 (07:28→20:15)
[2016-11-05] MEDS: ALBUTEROL HALF STRENGTH 1.25 MG/3 ML VIAL.NEB NEB SCH ×2 (07:29→20:15)
--- NOTE | 2016-11-05 07:35 | NUR ---
MS RN NOTE RECEIVED REPORT FROM DISTRICT RECRUITER NURSE. PT RESTING COMFORTABLY IN BED, WITH NO APPARENT DISTRESS. PT DENIES COMPLAINTS. WILL CONTINUE TO MONITOR.
[2016-11-05] MEDS: POTASSIUM CHLORIDE IV PRN ×2 (07:53→17:13)
[2016-11-05] MEDS: NACL IV PRN ×2 (07:53→17:13)
[2016-11-05] MEDS: D5 IV PRN ×2 (07:53→17:13)
[2016-11-05 07:58] LABS: EOSINOPHILS # (AUTO) 0.3 /CMM (0.0-0.7); EOSINOPHILS % (AUTO) 4.5 % (0.0-6.0); HEMATOCRIT 25 % (33-45); HEMOGLOBIN 8.3 g/dL (11.5-14.8); LYMPHOCYTES # (AUTO) 1.2 /CMM (0.8-4.8); LYMPHOCYTES % (AUTO) 16.2 % (20.0-44.0); MEAN CORPUSCULAR HEMOGLOBIN 30 PG (26.0-33.0); MEAN CORPUSCULAR HGB CONC 33 g/dl (31.0-36.0); MEAN CORPUSCULAR VOLUME 92 fL (82-100); MONOCYTES # (AUTO) 0.2 /CMM (0.1-1.30); MONOCYTES % (AUTO) 3.2 % (2.0-12.0); NEUTROPHILS # (AUTO) 5.6 /CMM (1.8-8.9); NEUTROPHILS % (AUTO) 76.1 % (43.0-81.0); PLATELET COUNT (AUTO) 155 /CMM (150-450); RDW COEFFICIENT OF VARIATION 14.6 (11.5-15.0); RED BLOOD CELL COUNT(AUTO) 2.76 MIL/uL (4.0-5.2); WHITE BLOOD COUNT (AUTO) 7.4 K/uL (4.3-11.0)
[2016-11-05 08:00] VITALS: BP 160/58
[2016-11-05 08:14] LABS: ALBUMIN 1.9 g/dL (3.4-5.0); BILIRUBIN,TOTAL 0.6 mg/dL (0.2-1.0); CALCIUM, SERUM 8.4 mg/dL (8.5-10.1); CREATININE 1.8 mg/dL (0.6-1.3); MAGNESIUM 1.8 mg/dL (1.8-2.4); POTASSIUM 4.2 mmol/L (3.5-5.1); TOTAL PROTEIN, SERUM 6.6 g/dL (6.4-8.2)
[2016-11-05] MEDS: PANTOPRAZOLE 40 MG VIAL IV SCH (08:35)
[2016-11-05] MEDS: LEVETIRACETAM (500MG) 500 MG in IV NS 0.9% 100 ML IV SCH ×2 (08:35→21:16)
[2016-11-05] MEDS: INSULIN REGULAR, HUMAN 100 UNIT/ML 3 ML VIAL SQ PRN ×2 (08:35→13:11)
[2016-11-05] MEDS: Z GUARD REMEDY 2 OZ OINT TP SCH ×2 (08:36→17:12)
[2016-11-05] MEDS: HEPARIN SODIUM, PORCINE 5000 UNITS/1 ML VIAL SQ SCH ×2 (08:36→21:25)
[2016-11-05] MEDS ORDERED: SECONDARY IV SET 1 EA INFUS.SET MC ONE ×2 (08:38→17:06)
[2016-11-05] MEDS ORDERED: GLYTROL 1,000 ML BAG GT PRN (13:30)
[2016-11-05] MEDS ORDERED: ANESTHESIA TRAY IN PYXIS 1 EA TRAY MC ONE (14:36)
[2016-11-05 16:00] VITALS: BP 91/64
[2016-11-05] MEDS ORDERED: CEFEPIME 1 GM VIAL IM SCH ×2 (16:00→17:00)
[2016-11-05] MEDS: CEFEPIME 1 GM in IV D5W 50 ML IV SCH (17:12)
--- NOTE | 2016-11-05 18:36 | NUR ---
MS RN NOTE PT RESTING COMFORTABLY, WITH NO APPARENT DISTRESS. PT ON 4L NC, NO SOB OR COUGHING. G-TUBE INTACT- WILL START FEEDING AT 1900, PER DR. CASAS (GLYTROL @60ML/HR). RESTRAINT INTACT TO RIGHT ARM FOR SAFETY/INTERFERING WITH LINES. IVF RUNNING ORDERED. WILL ENDORSE TO DITCH TENDER RN FOR NATALIA.
--- NOTE | 2016-11-05 19:30 | NUR ---
RN INITIAL NOTES RECEIVED PATIENT AWAKE, RESPONSIVE TO NAME. NO S/S OF PAIN OR DISCOMFORT. RESPIRATIONS EVEN AND UNLABORED. WITH 3LPMO2 VIA NC. SKIN WARM AND DRY TO TOUCH. WITH GTF AT 30ML/HR, WITH MINIMAL RESIDUAL NOTED. GT PATENT, INTACT, IN PLACE. GT SITE CLEAN AND DRY. IVF RUNNING. F/C DRAINING. HOB KEPT ELEVATED. SIDE RAILS UP AND LOCKED. BED KEPT AT LOWEST POSITION. CALL LIGHT KEPT WITHIN EASY REACH. WILL CONTINUE TO MONITOR.
[2016-11-05 20:00] VITALS: BP 146/42
[2016-11-05] MEDS: INSULIN DETEMIR 100 UNIT/ML CARTRIDGE SQ SCH (21:26)
[2016-11-05] MEDS: LATANOPROST EYE DROP 0.005% 2.5 ML BOTTLE EACHEYE SCH (21:30)
[2016-11-06] MEDS: BLOOD SUGAR DIAGNOSTIC 1 EACH STRIP IN SCH ×4 (00:27→17:00)
[2016-11-06] MEDS: INSULIN REGULAR, HUMAN 100 UNIT/ML 3 ML VIAL SQ PRN ×4 (00:30→17:09)
[2016-11-06] MEDS: POTASSIUM CHLORIDE IV PRN (03:44)
[2016-11-06] MEDS: D5 IV PRN (03:44)
[2016-11-06] MEDS: NACL IV PRN (03:44)
[2016-11-06 04:00] VITALS: BP 155/44
--- NOTE | 2016-11-06 07:00 | NUR ---
RN INITIAL NOTES RECEIVED PATIENT AWAKE, RESPONSIVE TO NAME. NO S/S OF PAIN OR DISCOMFORT. RESPIRATIONS EVEN AND UNLABORED. WITH 3LPMO2 VIA NC. SKIN WARM AND DRY TO TOUCH. WITH GTF AT 60ML/HR, WITH MINIMAL RESIDUAL NOTED. GT PATENT, INTACT, IN PLACE. GT SITE CLEAN AND DRY. IVF RUNNING. F/C DRAINING. HOB KEPT ELEVATED. SIDE RAILS UP AND LOCKED. BED KEPT AT LOWEST POSITION. CALL LIGHT KEPT WITHIN EASY REACH. WILL CONTINUE TO MONITOR
--- NOTE | 2016-11-06 07:01 | NUR ---
MS RN CLOSING NOTES NO SIGNIFICANT CHANGES OVERNIGHT. ALL NEEDS ANTICIPATED AND MET. RESPIRATIONS EVEN AND UNLABORED. SKIN WARM AND DRY TO TOUCH. TOLERATING GTF. GT PATENT, INTACT, IN PLACE. HOB KEPT ELEVATED. KEPT CLEAN AND DRY. TURNED AND REPOSITIONED Q2 AND PRN. HOB KEPT ELEVATED. SIDE RAILS UP AND LOCKED. BED KEPT AT LOWEST POSITION. CALL LIGHT KEPT WITHIN EASY REACH. WILL ENDORSE CONTINUITY OF CARE TO AM NURSE.
[2016-11-06] MEDS: ALBUTEROL HALF STRENGTH 1.25 MG/3 ML VIAL.NEB NEB SCH ×2 (07:47→19:29)
[2016-11-06] MEDS: ACETYLCYSTEINE 10% SOLN 400 MG/4 ML VIAL NEB SCH ×3 (07:48→19:29)
[2016-11-06 07:50] LABS: CALCIUM, SERUM 8.5 mg/dL (8.5-10.1); CREATININE 1.3 mg/dL (0.6-1.3); POTASSIUM 4.2 mmol/L (3.5-5.1)
[2016-11-06 07:56] LABS: BASOPHILS % (AUTO) 0.3 % (0.0-2.0); EOSINOPHILS # (AUTO) 0.2 /CMM (0.0-0.7); EOSINOPHILS % (AUTO) 2.9 % (0.0-6.0); HEMATOCRIT 26 % (33-45); HEMOGLOBIN 8.4 g/dL (11.5-14.8); LYMPHOCYTES # (AUTO) 1.5 /CMM (0.8-4.8); LYMPHOCYTES % (AUTO) 18.6 % (20.0-44.0); MEAN CORPUSCULAR HEMOGLOBIN 30 PG (26.0-33.0); MEAN CORPUSCULAR HGB CONC 32 g/dl (31.0-36.0); MEAN CORPUSCULAR VOLUME 93 fL (82-100); MONOCYTES # (AUTO) 0.1 /CMM (0.1-1.30); MONOCYTES % (AUTO) 1.7 % (2.0-12.0); NEUTROPHILS # (AUTO) 6.3 /CMM (1.8-8.9); NEUTROPHILS % (AUTO) 76.5 % (43.0-81.0); PLATELET COUNT (AUTO) 222 /CMM (150-450); RDW COEFFICIENT OF VARIATION 14.3 (11.5-15.0); WHITE BLOOD COUNT (AUTO) 8.2 K/uL (4.3-11.0)
[2016-11-06 08:00] VITALS: BP 152/50
[2016-11-06] MEDS: VANCOMYCIN 500 MG in IV D5W 100 ML IV SCH (08:36)
[2016-11-06] MEDS: PANTOPRAZOLE 40 MG VIAL IV SCH (08:38)
[2016-11-06] MEDS: HEPARIN SODIUM, PORCINE 5000 UNITS/1 ML VIAL SQ SCH (08:48)
[2016-11-06] MEDS: Z GUARD REMEDY 2 OZ OINT TP SCH ×2 (09:32→16:38)
[2016-11-06] MEDS: LEVETIRACETAM (500MG) 500 MG in IV NS 0.9% 100 ML IV SCH ×2 (09:35→21:29)
[2016-11-06] MEDS ORDERED: IV NS 0.9% 250 ML IV ONE (13:57)
[2016-11-06] MEDS: GLYTROL 1,000 ML BAG GT PRN (15:50)
[2016-11-06 16:00] VITALS: BP 138/41
[2016-11-06] MEDS: CEFEPIME 1 GM in IV D5W 50 ML IV SCH (16:53)
--- NOTE | 2016-11-06 19:30 | NUR ---
MS CALDERÓN INITIAL NOTES RECEIVED PATIENT AWAKE, A/OX1 FAMILY AT BEDSIDE. NO S/S OF PAIN OR DISCOMFORT. RESPIRATIONS EVEN AND UNLABORED. SKIN WARM AND DRY TO TOUCH. NOTED WITH NON-PRODUCTIVE COUGH. NO SOB NOTED. F/C DRAINING. WITH OLIVIA MIDLINE PATENT AND INTACT TKO. WITH GTF AT 75ML/HR TOLERATING WELL. GT PATENT, INTACT, IN PLACE. HOB KEPT ELEVATED. SIDE RAILS UP AND LOCKED. BED KEPT AT LOWEST POSITION. CALL LIGHT KEPT WITHIN EASY REACH. WITH RW SOFT RESTRAINT, CIRCULATION CHECKED. WILL CONTINUE TO MONITOR.
[2016-11-06 20:00] VITALS: BP 106/85
[2016-11-06] MEDS: LATANOPROST EYE DROP 0.005% 2.5 ML BOTTLE EACHEYE SCH (21:29)
[2016-11-06] MEDS: INSULIN DETEMIR 100 UNIT/ML CARTRIDGE SQ SCH (21:34)
[2016-11-07] MEDS: BLOOD SUGAR DIAGNOSTIC 1 EACH STRIP IN SCH ×4 (00:46→18:33)
[2016-11-07] MEDS: INSULIN REGULAR, HUMAN 100 UNIT/ML 3 ML VIAL SQ PRN ×3 (00:50→11:42)
[2016-11-07 04:00] VITALS: BP 166/45
[2016-11-07 06:00] VITALS: BP 147/68
[2016-11-07] MEDS: GLYTROL 1,000 ML BAG GT PRN (06:33)
[2016-11-07 07:20] LABS: CALCIUM, SERUM 8.5 mg/dL (8.5-10.1); CREATININE 1.1 mg/dL (0.6-1.3); POTASSIUM 4.6 mmol/L (3.5-5.1)
[2016-11-07 07:21] LABS: BASOPHILS % (AUTO) 0.3 % (0.0-2.0); EOSINOPHILS # (AUTO) 0.2 /CMM (0.0-0.7); EOSINOPHILS % (AUTO) 2.5 % (0.0-6.0); HEMATOCRIT 25 % (33-45); HEMOGLOBIN 8.2 g/dL (11.5-14.8); LYMPHOCYTES # (AUTO) 1.4 /CMM (0.8-4.8); LYMPHOCYTES % (AUTO) 14.8 % (20.0-44.0); MEAN CORPUSCULAR HEMOGLOBIN 30 PG (26.0-33.0); MEAN CORPUSCULAR HGB CONC 33 g/dl (31.0-36.0); MEAN CORPUSCULAR VOLUME 92 fL (82-100); MONOCYTES # (AUTO) 0.3 /CMM (0.1-1.30); MONOCYTES % (AUTO) 2.9 % (2.0-12.0); NEUTROPHILS # (AUTO) 7.4 /CMM (1.8-8.9); NEUTROPHILS % (AUTO) 79.5 % (43.0-81.0); PLATELET COUNT (AUTO) 264 /CMM (150-450); RDW COEFFICIENT OF VARIATION 14.1 (11.5-15.0); RED BLOOD CELL COUNT(AUTO) 2.73 MIL/uL (4.0-5.2); WHITE BLOOD COUNT (AUTO) 9.4 K/uL (4.3-11.0)
--- NOTE | 2016-11-07 07:26 | NUR ---
MS RN CLOSING NOTES NO SIGNIFICANT CHANGES OVERNIGHT. ALL NEEDS ANTICIPATED AND MET. TOLERATED GTF AT 75ML/HR. KEPT CLEAN AND DRY. TURNED AND REPOSITIONED Q2 AND PRN. HOB KEPT ELEVATED. SIDE RAILS UP AND LOCKED. BED KEPT AT LOWEST POSITION. CALL LIGHT KEPT WITHIN EASY REACH. CONTINUITY OF CARE ENDORSED TO AM NURSE.
--- NOTE | 2016-11-07 07:55 | NUR ---
RN INITIAL NOTES RECEIVED PATIENT AWAKE. NO S/S OF PAIN OR DISCOMFORT. RESPIRATIONS EVEN AND UNLABORED. SKIN WARM AND DRY TO TOUCH. NOTED WITH NON-PRODUCTIVE COUGH. NO SOB NOTED. F/C DRAINING. WITH OLIVIA MIDLINE PATENT AND INTACT TKO. WITH GTF AT 75ML/HR TOLERATING WELL. GT PATENT, INTACT, IN PLACE. HOB KEPT ELEVATED. SIDE RAILS UP AND LOCKED. BED KEPT AT LOWEST POSITION. CALL LIGHT KEPT WITHIN EASY REACH. WITH RW SOFT RESTRAINT, CIRCULATION CHECKED. WILL CONTINUE TO MONITOR.
[2016-11-07 08:00] VITALS: BP 164/42
[2016-11-07] MEDS: ACETYLCYSTEINE 10% SOLN 400 MG/4 ML VIAL NEB SCH (08:11)
[2016-11-07] MEDS: ALBUTEROL HALF STRENGTH 1.25 MG/3 ML VIAL.NEB NEB SCH (08:11)
[2016-11-07] MEDS ORDERED: LEVETIRACETAM SOL (5 ML) 100 MG/ML UDC GT SCH (09:00)
[2016-11-07] MEDS ORDERED: VANCOMYCIN 500 MG in IV D5W 100 ML IV SCH ×2 (09:00→11:00)
[2016-11-07] MEDS: Z GUARD REMEDY 2 OZ OINT TP SCH ×2 (09:04→17:54)
[2016-11-07] MEDS: PANTOPRAZOLE 40 MG VIAL IV SCH (09:04)
[2016-11-07] MEDS ORDERED: VANCOMYCIN 1 GM in IV D5W 250 ML IV SCH (11:00)
[2016-11-07] MEDS ORDERED: GLYTROL 1,000 ML BAG GT PRN (11:01)
[2016-11-07] MEDS ORDERED: SECONDARY IV SET 1 EA INFUS.SET MC ONE (11:10)
[2016-11-07] MEDS ORDERED: RXVAN XX (14:52)
--- NOTE | 2016-11-07 15:39 | NUR ---
pt d/c to [facility].all m.d orders noted and carried out.pt in stable condition at this time/
[2016-11-07 16:00] VITALS: BP 121/45
[2016-11-07] MEDS ORDERED: LACTOBACILLUS RHAMNOSUS GG 1 EACH CAP.SPRINK GT SCH (17:00)
[2016-11-07] MEDS: CEFEPIME 1 GM in IV D5W 50 ML IV SCH (17:08)
[2016-11-08] MEDS ORDERED: VANCOMYCIN 500 MG in IV D5W 100 ML IV SCH (11:00)
== END 2016-11-07 19:14 | DRG 871 ==
LOC: ER 19:19 → ICU 20:59 → TELE-TD 11-02 15:30 → TELE1 11-03 10:47 → MEDSG1 11-04 11:24
PROC: 05H533Z Insertion of Infusion Device into Right Subclavian Vein, Percutaneous Approach (ICD-10-PCS; 2016-10-30)
PROC: 0DH63UZ Insertion of Feeding Device into Stomach, Percutaneous Approach (ICD-10-PCS; principal; 2016-11-05 11:30)
DX: A41.9 Sepsis, unspecified organism (principal); J15.212 Pneumonia due to Methicillin resistant Staphylococcus aureus; E11.01 Type 2 diabetes mellitus with hyperosmolarity with coma; N17.0 Acute kidney failure with tubular necrosis; I21.4 Non-ST elevation (NSTEMI) myocardial infarction; J96.01 Acute respiratory failure with hypoxia; G92 Toxic encephalopathy; J69.0 Pneumonitis due to inhalation of food and vomit; E87.0 Hyperosmolality and hypernatremia; J90 Pleural effusion, not elsewhere classified; J98.11 Atelectasis; E46 Unspecified protein-calorie malnutrition; Z68.1 Body mass index [BMI] 19.9 or less, adult; Z86.73 Personal history of transient ischemic attack (TIA), and cerebral infarction without residual deficits; K21.9 Gastro-esophageal reflux disease without esophagitis; D63.8 Anemia in other chronic diseases classified elsewhere; E11.65 Type 2 diabetes mellitus with hyperglycemia; E83.39 Other disorders of phosphorus metabolism; E86.0 Dehydration; E87.70 Fluid overload, unspecified; F03.90 Unspecified dementia, unspecified severity, without behavioral disturbance, psychotic disturbance, mood disturbance, and anxiety; Z79.4 Long term (current) use of insulin; I10 Essential (primary) hypertension; G40.909 Epilepsy, unspecified, not intractable, without status epilepticus; E88.09 Other disorders of plasma-protein metabolism, not elsewhere classified; E87.6 Hypokalemia; I27.2 Other secondary pulmonary hypertension; H40.9 Unspecified glaucoma; F32.9 Major depressive disorder, single episode, unspecified
CPT/HCPCS: 31720; 36415; 36569; 36600; 43246; 71010-TC; 71250-TC; 76942-TC; 80048-TC; 80053-TC; 80061-TC; 80076-TC; 80202-TC; 81000-TC; 82306; 82728-TC; 82803-TC; 82945-TC; 82947-TC; 82962-TC; 83540-TC; 83605-TC; 83735-TC; 84100-TC; 84439-TC; 84443-TC; 84484-TC; 85025-TC; 85730-TC; 87040-TC; 87070-TC; 87081-TC; 87086-TC; 92611-TC; 93307-TC; 94760-TC; 94799-TC; A4216; A4606; A9563; C9113; J0692; J1200; J1644; J1815; J1940; J1953; J2001; J2270; J2543; J2704; J3370; J3475; J3480; J3490; J7030; J7050; J7060; P9047

== ENCOUNTER 2019-10-10 17:15 | Inpatient (IN) | payer MEDICARE, OTHER ==
[~2019-10-10] VITALS: Ht 149.9 cm; Wt 46.5 kg
[~2019-10-10 17:15] MED LIST: ACET-868 PO; BENA5TAB5 GT; BISA10SU61 RC; CARV12.5 GT; CLON0.1T GT; CRAN3875 GT; CRAN425C6 GT; DOCU-141 GT; FAMO20TA8 PO; FERR325T24 PO; HEPA500014 SQ; INDA2.5T5 PO; INSU100V7 SQ; LATA2.5D2 EACHEYE; LEVE500T9 GT; MAGN400O6 PO; MINO2.5T2 PO; MULT-594 GT; NA P133E RC; OMEP20CA15 PO; ONDA4TAB5 PO; RXVAN XX; SENN-168 PO
--- NOTE | 2019-10-10 17:22 | NUR ---
PT BIBRA FROM [facility] C/O LOW O2 SAT AT 90'S AND FEVER, PT IS AAOX0, NOT IN RESPIRATORY DISTRESS ,HOOKED TO MONITOR, KEPT RESTED AND COMFORTABLE, WILL CONTINUE TO MONITOR.
--- NOTE | 2019-10-10 17:33 | NUR ---
SEEN AND EXAMINEDB Y DR. CHOI
--- NOTE | 2019-10-10 17:50 | NUR ---
IV LINE ESTABLISHED, BLOOD DRAWN AND SENT TO LAB.
[2019-10-10] MEDS ORDERED: ACETAMINOPHEN 650 MG/SUPP.RECT RC ONE ×2 (17:58→18:00)
[2019-10-10] MEDS ORDERED: CEFTRIAXONE 1GM BAG (ER ONLY) 50 ML IV ONE ×2 (18:00→18:14)
--- NOTE | 2019-10-10 18:05 | NUR ---
URINE SPECIMEN COLLECTED AND SENT TO LAB.
[2019-10-10 18:07] LABS: BASOPHILS % (AUTO) 0.4 % (0.0-2.0); EOSINOPHILS % (AUTO) 0.8 % (0.0-6.0); HEMATOCRIT 34 % (33-45); HEMOGLOBIN 11.1 g/dL (11.5-14.8); LYMPHOCYTES # (AUTO) 0.9 /CMM (0.8-4.8); LYMPHOCYTES % (AUTO) 16.6 % (20.0-44.0); MEAN CORPUSCULAR HGB CONC 33 g/dl (31.0-36.0); MEAN CORPUSCULAR VOLUME 97 fL (82-100); MONOCYTES # (AUTO) 0.7 /CMM (0.1-1.30); MONOCYTES % (AUTO) 12.2 % (2.0-12.0); NEUTROPHILS # (AUTO) 3.7 /CMM (1.8-8.9); PLATELET COUNT (AUTO) 144 /CMM (150-450); RED BLOOD CELL COUNT(AUTO) 3.48 MIL/uL (4.0-5.2); WHITE BLOOD COUNT (AUTO) 5.3 K/uL (4.3-11.0)
[2019-10-10 18:09] LABS: CALCIUM, SERUM 8.2 mg/dL (8.5-10.1); CREATININE 1.7 mg/dL (0.6-1.3); POTASSIUM 4.3 mmol/L (3.5-5.1)
--- NOTE | 2019-10-10 18:13 | NUR ---
TECHNOLOGY STRATEGIST AT BEDSIDE FOR XRAY.
[2019-10-10 18:18] LABS: APPEARANCE,URINE Slightly Cloudy (CLEAR); BILIRUBIN,URINE Negative (NEGATIVE); BLOOD, URINE Trace-intact Ery/uL (NEGATIVE); COLOR,URINE Yellow (YELLOW); KETONES,URINE Negative (NEGATIVE); LEUKOCYTE ESTERASE ,URINE Trace (NEGATIVE); NITRITE, URINE Negative (NEGATIVE); PH,URINE 5.5 (5.0-8.0); PROTEIN,URINE >=300 mg/dl (NEGATIVE); UGLUCOSE Negative (NEGATIVE); UROBILINOGEN,URINE 0.2 EU/dL (0.2)
[2019-10-10] MEDS ORDERED: NEPA3DRO EACHEYE (18:19)
[2019-10-10] MEDS ORDERED: INSU100I26 SQ (18:19)
[2019-10-10] MEDS ORDERED: THIA100T74 GT (18:19)
[2019-10-10] MEDS ORDERED: OMEG1CAP GT (18:19)
[2019-10-10] MEDS ORDERED: AMIN30LI2 GT (18:19)
[2019-10-10] MEDS ORDERED: INSU100V11 SQ (18:19)
[2019-10-10] MEDS ORDERED: ATOR20TA GT (18:19)
[2019-10-10] MEDS ORDERED: NUT.237L31 GT (18:19)
[2019-10-10 18:21] LABS: WBC,URINE 21-50 /HPF (0-3)
[2019-10-10 18:22] LABS: BACTERIA,URINE Moderate /HPF (None Seen); HYALINE CASTS, URINE Rare /LPF (None Seen); SQUAMOUS EPITHELIAL CELL,UR Few /HPF (None Seen)
[2019-10-10 18:23] LABS: ALBUMIN 2.3 g/dL (3.4-5.0); BILIRUBIN,DIRECT 0.1 mg/dL (0.0-0.2); BILIRUBIN,TOTAL 0.3 mg/dL (0.2-1.0); TOTAL PROTEIN, SERUM 6.7 g/dL (6.4-8.2)
--- NOTE | 2019-10-10 19:57 | NUR ---
CALLED [facility], PAGED ERNIE RODRÍGUEZ
--- NOTE | 2019-10-10 20:27 | NUR ---
BED ASSIGNMENT 326-2
--- NOTE | 2019-10-10 20:33 | NUR ---
AT BEDSIDE FOR RE-EVAL
--- NOTE | 2019-10-10 20:38 | NUR ---
FLU SWAB SAMPLE TAKEN TO LAB
--- NOTE | 2019-10-10 21:00 | NUR ---
REPORT GIVEN TO EDWARD CALDERÓN FOR NATALIA.
--- NOTE | 2019-10-10 21:50 | NUR ---
WATER PROJECT ENGINEER NOTES RECEIVED PATIENT TRANSPORTED FROM ER VIA GURNEY, CALM RESTING COMFORTABLY, NO SIGNS OF ACUTE RESPIRATORY DISTRESS, FAMILY MEMBERS AT BEDSIDE, ABLE TO OBTAIN SOME PERTINENT DATA FROM FAMILY MEMBERS, INITIATE ADMISSION PROCESS, SKIN ASSESSMENT DONE, AND DOCUMENTED, IV ACCESS ON HER RIGHT THIGH G#20 INTACT AND PATENT, WITH AV SHUNT ON HER LEFT UPPER ARM BRUIT AND THRILL PRESENT. GT INTACT AND PATENT,ALL NEEDS ANTICIPATED, WILL CONTINUE TO MONITOR ACCORDINGLY.
[2019-10-10 22:10] VITALS: BP 159/66
[2019-10-10] MEDS ORDERED: ASPIRIN 325 MG TABLET PO ONE (22:30)
[2019-10-10] MEDS ORDERED: ACETAMINOPHEN 325 MG TABLET PO PRN (22:30)
[2019-10-10] MEDS ORDERED: ONDANSETRON HCL/PF 4 MG/2 ML VIAL IVP PRN (22:30)
[2019-10-10] MEDS ORDERED: CLONIDINE HCL 0.1 MG TABLET GT PRN (22:30)
[2019-10-10] MEDS ORDERED: MAGNESIUM HYDROXIDE 30 ML UDC PO PRN (22:30)
[2019-10-10] MEDS ORDERED: Z GUARD REMEDY 2 OZ OINT TP PRN (22:30)
[2019-10-10] MEDS ORDERED: FUROSEMIDE 40 MG/4 ML VIAL IV ONE (22:30)
[2019-10-10] MEDS ORDERED: ALBUTEROL FS 2.5 MG/3 ML VIAL.NEB NEB PRN (22:30)
[2019-10-10] MEDS ORDERED: MAG HYDROX/AL HYDROX/SIMETH 30 ML UDC PO PRN (22:30)
[2019-10-10] MEDS ORDERED: ZOLPIDEM TARTRATE 5 MG TABLET PO PRN (22:30)
[2019-10-10] MEDS ORDERED: MORPHINE SULFATE INJ 2 MG/ML DISP.SYRIN IV PRN (22:30)
[2019-10-10] MEDS ORDERED: HYDROCODONE/APAP 5/325MG 1 EACH TABLET PO PRN (22:30)
[2019-10-10] MEDS ORDERED: GLUCERNA 1.5 1,000 ML BOTTLE GT SCH (22:30)
[2019-10-10] MEDS ORDERED: DEXTROSE 50%-WATER 50 ML DISP.SYRIN IV PRN (22:30)
[2019-10-10 22:45] VITALS: BP 159/66
--- NOTE | 2019-10-10 23:29 | NUR ---
rn notes aspirin 325 mg once given via GT.
[2019-10-11] VITALS (9 sets, daily range): BP systolic 125–185; BP diastolic 47–75
[2019-10-11] MEDS: GLUCERNA 1.2 1,000 ML BOTTLE GT PRN (04:24)
[2019-10-11] MEDS: BLOOD SUGAR DIAGNOSTIC 1 EACH STRIP IN SCH ×4 (07:16→21:35)
--- NOTE | 2019-10-11 07:29 | NUR ---
RN NOTES ALL NEEDS ATTENDED AND MET, ABLE TO REST AND SLEPT AT INTERVALS, SAFETY MEASURES IN PLACE, CALL LIGHT WITH IN EASY REACH, GT FEEDING TOLERATING WELL, AV FISTULA ON HER LEFT UPPER EXTREMITY WITH STRONG BRUIT SWISHING THRILL PRESENT. ENDORSED TO AM NURSE FOR CONTINUITY OF CARE.
--- NOTE | 2019-10-11 08:00 | NUR ---
FRENCH EDGE OPERATOR OPENING NOTES Received Patient asleep and resting in bed. A/O x 1, Afghan speaking. VS stable with no acute distress. Breathing even and unlabored on 2LPM via NC with no respiratory distress. Denies pain. No signs and symptoms of pain. Telemonitor in place and patent reading SR with HR-75. Gtube in place and patent with Glucerna 1.2 infusing at 50ml/hr. 20g PIV on Right Thigh clean, intact, patent and flushing well. Left AV Fistula clean and intact with bruit and thrill noted. Safety precautions in place. Bed locked and set to lowest position with side rails x 2 up. All needs rendered at this time. Call light within reach. Will continue to monitor.
[2019-10-11 08:35] LABS: BASOPHILS % (AUTO) 0.4 % (0.0-2.0); EOSINOPHILS % (AUTO) 0.1 % (0.0-6.0); HEMATOCRIT 37 % (33-45); LYMPHOCYTES # (AUTO) 1.8 /CMM (0.8-4.8); LYMPHOCYTES % (AUTO) 35.1 % (20.0-44.0); MEAN CORPUSCULAR HGB CONC 33 g/dl (31.0-36.0); MEAN CORPUSCULAR VOLUME 97 fL (82-100); MONOCYTES # (AUTO) 0.5 /CMM (0.1-1.30); MONOCYTES % (AUTO) 10.5 % (2.0-12.0); NEUTROPHILS # (AUTO) 2.8 /CMM (1.8-8.9); NEUTROPHILS % (AUTO) 53.9 % (43.0-81.0); PLATELET COUNT (AUTO) 128 /CMM (150-450); RED BLOOD CELL COUNT(AUTO) 3.78 MIL/uL (4.0-5.2); WHITE BLOOD COUNT (AUTO) 5.2 K/uL (4.3-11.0)
[2019-10-11] MEDS ORDERED: Medication Not On Formulary EA (Omega-3 Fatty Acids/Fish Oil (Fish Oil 1,000 Mg Capsule) GT SCH (09:00)
[2019-10-11] MEDS ORDERED: MULTIVITAMIN LIQ 5 ML UDC GT SCH (09:00)
[2019-10-11] MEDS ORDERED: OMEGA GT SCH (09:00)
[2019-10-11] MEDS ORDERED: FATTY ACIDS GT SCH (09:00)
[2019-10-11] MEDS: BENAZEPRIL HCL 5 MG TABLET GT SCH ×2 (09:00→16:46)
[2019-10-11] MEDS ORDERED: NEPAFENAC OP SCH (09:00)
[2019-10-11] MEDS ORDERED: FISH OIL GT SCH (09:00)
[2019-10-11] MEDS ORDERED: Medication Not On Formulary EA (Cranberry Extract (Cranberry) 425 MG) GT SCH (09:00)
[2019-10-11 09:03] LABS: ALBUMIN 2.2 g/dL (3.4-5.0); BILIRUBIN,TOTAL 0.2 mg/dL (0.2-1.0); CALCIUM, SERUM 8.9 mg/dL (8.5-10.1); CREATININE 1.7 mg/dL (0.6-1.3); MAGNESIUM 2.8 mg/dL (1.8-2.4); PHOSPHORUS 5.7 mg/dL (2.5-4.9); POTASSIUM 3.8 mmol/L (3.5-5.1); TOTAL PROTEIN, SERUM 6.8 g/dL (6.4-8.2)
[2019-10-11 09:05] LABS: THYROID STIMULATING HORMONE 1.36 uIU/mL (0.358-3.74)
[2019-10-11] MEDS: PIPERACILLIN /TAZOBACTAM 3.375 G in IV D5W 50 ML IV SCH ×3 (09:47→20:11)
[2019-10-11] MEDS: PANTOPRAZOLE 40 MG TABLET.DR PO SCH (09:47)
[2019-10-11] MEDS: MULTIVITAMINS,THERAGRAN 1 UDTAB TABLET GT SCH (09:50)
[2019-10-11] MEDS: LEVETIRACETAM SOL (5 ML) 100 MG/ML UDC GT SCH ×2 (09:50→21:12)
[2019-10-11] MEDS: THIAMINE HCL 100 MG TABLET GT SCH (09:50)
[2019-10-11] MEDS: CARVEDILOL 12.5 MG TABLET GT SCH ×2 (09:50→16:46)
[2019-10-11] MEDS: HEPARIN SODIUM, PORCINE 5000 UNITS/1 ML VIAL SQ SCH ×2 (09:55→21:14)
[2019-10-11] MEDS: DICLOFENAC 0.1% OPTH DROPS 5 ML BOTTLE OP SCH (13:09)
[2019-10-11] MEDS: ASPIRIN 81 MG TAB.CHEW PO SCH (13:09)
[2019-10-11] MEDS: INSULIN REGULAR, HUMAN 100 UNIT/ML 3 ML VIAL SQ PRN ×3 (13:11→21:42)
[2019-10-11] MEDS ORDERED: FEE PK DOSING 1 MIN EA MC ONE (16:25)
[2019-10-11] MEDS ORDERED: VANCOMYCIN 1 GM in IV D5W 250 ML IV ONE (17:00)
--- NOTE | 2019-10-11 19:06 | NUR ---
FHA UNDERWRITER OPENING NOTES Patient asleep and resting in bed. A/O x 1, Luxembourgish speaking. VS stable with no acute distress. Breathing even and unlabored on 2LPM via NC with no respiratory distress. Denies pain. No signs and symptoms of pain. Telemonitor in place and patent reading SR with HR-62. Gtube in place and patent with Glucerna 1.2 infusing at 50ml/hr. 20g PIV on Right Thigh clean, intact, patent and flushing well. Left AV Fistula clean and intact with bruit and thrill noted. Safety precautions in place. Bed locked and set to lowest position with side rails x 2 up. All needs rendered at this time. Call light within reach. Will endorse plan of care to oncoming shift. Addendum: 10/12/19 at 0803 by HUSEYIN PARDO RN FHA UNDERWRITER CLOSING NOTES
--- NOTE | 2019-10-11 19:15 | NUR ---
diploma pharmacy technician opening notes Received Pt from morning nurse. Pt is alert and oriented X1, calm and confused. Pt speaks Bulgarian and able to make needs known. Respiration is normal in 2 L NC. No SOB. No S/S of distress noted. Iv sites at R thigh # 20 is clean, intact, patent and SL. Gtube is intact, patent and infuising glucerna 1.2 xaing at 50 ml/hr. Tele monitor showed SR HR at 68. Keep Pt clean, dry, warm and comfortable and HOB elevated. Safety precautions is maintained. Bed at low position, brakes locked, side rails upX3 and call light is within reach. Will continue to monitor.
[2019-10-11] MEDS: LATANOPROST EYE DROP 0.005% 2.5 ML BOTTLE EACHEYE SCH (21:11)
[2019-10-11] MEDS: DOCUSATE SODIUM 100 MG CAPSULE PO SCH (21:12)
[2019-10-11] MEDS: INSULIN GLARGINE, 100 UNIT/ML CARTRIDGE SQ SCH (21:38)
[2019-10-11] MEDS ORDERED: INSULIN GLARGINE,BASAGLAR 100 UNIT/ML INSULN.PEN SQ SCH (22:00)
[2019-10-11] MEDS ORDERED: PIPERACILLIN /TAZOBACTAM 3.375 G in IV D5W 50 ML IV SCH (22:49)
--- NOTE | 2019-10-11 23:00 | NUR ---
cattle brander notes Find and noticed Pt screatching and rubbing injection site from heparin shot. Informed Pt not to touch the injection sites. Skin is cleaned with NS, pat dry and mepilex applied. Charge nurse is aware and informed. Will continue to monitor.
[2019-10-12] VITALS: BP 124/67
[2019-10-12] MEDS: PIPERACILLIN /TAZOBACTAM 3.375 G in IV D5W 50 ML IV SCH ×4 (02:49→21:35)
[2019-10-12 04:00] VITALS: BP 127/71
[2019-10-12 04:07] VITALS: BP 127/71
[2019-10-12] MEDS: GLUCERNA 1.2 1,000 ML BOTTLE GT PRN (04:17)
[2019-10-12] MEDS: BLOOD SUGAR DIAGNOSTIC 1 EACH STRIP IN SCH ×4 (06:37→22:16)
--- NOTE | 2019-10-12 07:00 | NUR ---
exhaust equipment operator closing otes Pt is sleeping in bed comfortably. Pt is alert and oriented X1, calm and confused. Pt speaks Sri Lankan and able to make needs known. Respiration is normal in 2 L NC. No SOB. No S/S of distress noted. VS is stable. Tele monitor showed SR HR at 63. IV sites at R thigh # 20 is clean, intact, patent and SL. Routine meds were given as ordered. Gtube is intact, patent and infuising glucerna 1.2 xiang at 50 ml x 20 hr. Keep Pt clean, dry, warm and comfortable and HOB elevated. All needs met and attended. Safety precautions is maintained. Bed at low position, brakes locked, side rails upX3 and call light is within reach. Will endorse to morning nurse for NATALIA.
[2019-10-12 07:49] LABS: BASOPHILS % (AUTO) 0.3 % (0.0-2.0); EOSINOPHILS % (AUTO) 2.3 % (0.0-6.0); HEMATOCRIT 36 % (33-45); HEMOGLOBIN 11.7 g/dL (11.5-14.8); LYMPHOCYTES # (AUTO) 1.4 /CMM (0.8-4.8); LYMPHOCYTES % (AUTO) 27.9 % (20.0-44.0); MEAN CORPUSCULAR HGB CONC 33 g/dl (31.0-36.0); MEAN CORPUSCULAR VOLUME 96 fL (82-100); MONOCYTES # (AUTO) 0.3 /CMM (0.1-1.30); MONOCYTES % (AUTO) 6.3 % (2.0-12.0); NEUTROPHILS # (AUTO) 3.2 /CMM (1.8-8.9); NEUTROPHILS % (AUTO) 63.2 % (43.0-81.0); PLATELET COUNT (AUTO) 147 /CMM (150-450)
[2019-10-12 08:00] VITALS: BP 123/56
--- NOTE | 2019-10-12 08:00 | NUR ---
ELECTRIC BLANKET WIRER OPENING NOTES Received Patient asleep and resting in bed. A/O x 1, Afghan speaking. VS stable with no acute distress. Breathing even and unlabored on 2LPM via NC with no respiratory distress. Denies pain. No signs and symptoms of pain. Telemonitor in place and patent reading SR with HR-63. Gtube in place and patent with Glucerna 1.2 infusing at 50ml/hr. 20g PIV on Right Thigh clean, intact, patent and flushing well. Left AV Fistula clean and intact with bruit and thrill noted. Safety precautions in place. Bed locked and set to lowest position with side rails x 2 up. All needs rendered at this time. Call light within reach. Will continue to monitor.
[2019-10-12 08:12] LABS: CALCIUM, SERUM 8.4 mg/dL (8.5-10.1); CREATININE 1.8 mg/dL (0.6-1.3); MAGNESIUM 2.8 mg/dL (1.8-2.4); PHOSPHORUS 4.3 mg/dL (2.5-4.9); POTASSIUM 3.8 mmol/L (3.5-5.1)
[2019-10-12] MEDS: PANTOPRAZOLE 40 MG TABLET.DR PO SCH (09:28)
[2019-10-12] MEDS: HEPARIN SODIUM, PORCINE 5000 UNITS/1 ML VIAL SQ SCH ×2 (09:29→21:37)
[2019-10-12] MEDS: CARVEDILOL 12.5 MG TABLET GT SCH ×2 (09:30→17:29)
[2019-10-12] MEDS: MULTIVITAMINS,THERAGRAN 1 UDTAB TABLET GT SCH (09:30)
[2019-10-12] MEDS: ASPIRIN 81 MG TAB.CHEW PO SCH (09:30)
[2019-10-12] MEDS: THIAMINE HCL 100 MG TABLET GT SCH (09:30)
[2019-10-12] MEDS: LEVETIRACETAM SOL (5 ML) 100 MG/ML UDC GT SCH ×2 (09:30→21:34)
[2019-10-12] MEDS: BENAZEPRIL HCL 5 MG TABLET GT SCH ×2 (09:32→17:29)
[2019-10-12] MEDS: DICLOFENAC 0.1% OPTH DROPS 5 ML BOTTLE OP SCH (09:33)
--- NOTE | 2019-10-12 10:49 | NUR ---
WOUND CARE CONSULT: PT PRESENTS WITH LEFT ABDOMEN SKIN TEAR AND LEFT BUTTOCK INCONTINENCE ASSOCIATED SKIN DAMAGE, PRESENT ON ADMISSION. RECOMMENDATIONS MADE FOR SKIN PROTECTION. DISCUSSED WITH NURSING STAFF. WILL SEE PRN. NIXON IN AGREEMENT WITH PLAN OF CARE. CURRENT FAVIOLA SCORE IS 13. Addendum: 10/12/19 at 1053 by LACIE BUI WNDNU Amended: Links added.
[2019-10-12] MEDS ORDERED: VANCOMYCIN 500 MG in IV D5W 100 ML IV SCH (11:00)
[2019-10-12] MEDS: INSULIN REGULAR, HUMAN 100 UNIT/ML 3 ML VIAL SQ PRN ×2 (12:38→18:17)
[2019-10-12 16:29] VITALS: BP 136/59
--- NOTE | 2019-10-12 18:44 | NUR ---
MS RN CLOSING NOTES Patient asleep and resting in bed. A/O x 1, Sinhala speaking. VS stable with no acute distress. Breathing even and unlabored on 2LPM via NC with no respiratory distress. Denies pain. No signs and symptoms of pain. Gtube in place and patent with Glucerna 1.2 infusing at 50ml/hr. 20g PIV on Right Thigh clean, intact, patent and flushing well. Left AV Fistula clean and intact with bruit and thrill noted. Noted self inflicted scratches on Patients abdomen and bilateral arms. Moisturized Patients skin. Provided comfort measures. Notified family at bedside. Per family, they will cut Patients nails possibly tomorrow. Safety precautions in place. Bed locked and set to lowest position with side rails x 2 up. All needs rendered at this time. Call light within reach. Will endorse plan of care to oncoming shift.
--- NOTE | 2019-10-12 19:10 | NUR ---
MS RN NOTES RECEIVED PT IN BED AND AWAKE. PT A/O X1 AND MALTESE SPEAKING. RESPIRATIONS EVEN AND UNLABORED WITH NO S/S OF ACUTE DISTRESS OR SOB NOTED. NO S/S OF PAIN AT THIS TIME. PT NOTED WITH RTHIGH @20G PATENT AND INTACT AND SL. PT NOTED WITH GTUBE PATENT AND INTACT INFUSING GLUCERNA 1.2 @50CC/HR. SAFETY MEASURES IN PLACE WITH BED IN LOWEST LOCKED POSITION WITH SIDE RAILS UP X2. CALL LIGHT WITHIN REACH. WILL CONTINUE TO MONITOR.
[2019-10-12 20:18] VITALS: BP 133/55
[2019-10-12] MEDS: DOCUSATE SODIUM 100 MG CAPSULE PO SCH (21:34)
[2019-10-12] MEDS: LATANOPROST EYE DROP 0.005% 2.5 ML BOTTLE EACHEYE SCH (21:36)
[2019-10-12] MEDS: INSULIN GLARGINE, 100 UNIT/ML CARTRIDGE SQ SCH (22:18)
--- NOTE | 2019-10-13 02:45 | NUR ---
MS RN NOTES PT NOTED WITH NO IV ACCESS. MULTIPLE TRIES WERE DONE BY MULTIPLE NURSES. PT A HARD STICK. MD AWARE. MIDLINE TO BE INSERTED IN AM. WILL CONTINUE TO MONITOR.
[2019-10-13] MEDS: PIPERACILLIN /TAZOBACTAM 3.375 G in IV D5W 50 ML IV SCH ×4 (03:00→23:32)
[2019-10-13] MEDS: GLUCERNA 1.2 1,000 ML BOTTLE GT PRN (03:14)
--- NOTE | 2019-10-13 03:30 | NUR ---
MS RN NOTES PT NOTED WITHOUT IV ACCESS, MD AWARE. AWAITING MIDLINE INSERTION. WILL CONTINUE TO MONITOR.
[2019-10-13 04:41] LABS: CALCIUM, SERUM 7.9 mg/dL (8.5-10.1); CREATININE 2.1 mg/dL (0.6-1.3)
--- NOTE | 2019-10-13 05:44 | NUR ---
MS RN NOTES PT VANCO TROUGH CAME BACK 23. PHARMACY MADE AWARE. DOSE TO BE HELD. WILL CONTINUE TO MONITOR.
[2019-10-13] MEDS: BLOOD SUGAR DIAGNOSTIC 1 EACH STRIP IN SCH ×4 (07:43→23:26)
--- NOTE | 2019-10-13 07:44 | NUR ---
MS RN NOTES PT IN BED AND AWAKE. PT A/O X1 AND INDONESIAN SPEAKING. RESPIRATIONS EVEN AND UNLABORED WITH NO S/S OF ACUTE DISTRESS OR SOB THROUGHOUT SHIFT. PT KEPT CLEAN, DRY, AND COMFORTABLE. NO S/S OF PAIN AT THIS TIME. PT NOTED WITH RTHIGH @20G PATENT AND INTACT AND SL. PT NOTED WITH GTUBE PATENT AND INTACT INFUSING GLUCERNA 1.2 @50CC/HR. SAFETY MEASURES IN PLACE WITH BED IN LOWEST LOCKED POSITION WITH SIDE RAILS UP X2. CALL LIGHT WITHIN REACH. WILL ENDORSE TO ONCOMING NURSE FOR NATALIA.
--- NOTE | 2019-10-13 08:00 | NUR ---
MS RN NOTES PATIENT IN BED RESTING NO SOB OR ACUTE DISTRESS NOTED. PATIENT ALERT, ORIENTED X1. CONFUSED. WITH MITTENS. SITTER AT BEDSIDE. BED IN LOW LOCKED POSITION. CALL LIGHT WITHIN REACH. PATIENT WITH NO PERIPHERAL IV. WAITING FOR IV NURSE FOR MIDLINE INSERTION. WILL CONTINUE TO MONITOR.
[2019-10-13] MEDS: ASPIRIN 81 MG TAB.CHEW PO SCH (08:30)
[2019-10-13] MEDS: PANTOPRAZOLE 40 MG TABLET.DR PO SCH (08:31)
[2019-10-13] MEDS: MULTIVITAMINS,THERAGRAN 1 UDTAB TABLET GT SCH (08:31)
[2019-10-13] MEDS: THIAMINE HCL 100 MG TABLET GT SCH (08:31)
[2019-10-13] MEDS: LEVETIRACETAM SOL (5 ML) 100 MG/ML UDC GT SCH ×2 (08:31→23:54)
[2019-10-13] MEDS: CARVEDILOL 12.5 MG TABLET GT SCH ×2 (08:32→17:31)
[2019-10-13] MEDS: HEPARIN SODIUM, PORCINE 5000 UNITS/1 ML VIAL SQ SCH ×2 (08:34→21:00)
[2019-10-13] MEDS: BENAZEPRIL HCL 5 MG TABLET GT SCH ×2 (08:39→17:30)
[2019-10-13] MEDS: DICLOFENAC 0.1% OPTH DROPS 5 ML BOTTLE OP SCH (09:34)
--- NOTE | 2019-10-13 10:53 | NUR ---
MS RN NOTES PATIENT WITH NO IV ACCES STILL WAITING FOR IV NURSE STRAIN[employer] M[employer] OPERATOR AWARE, AWARE.
--- NOTE | 2019-10-13 18:37 | NUR ---
MS RN NOTES PATIENT IN BED RESTING NO SOB OR ACUTE DISTRESS NOTED. ALL DUE MEDICATIONS ADMINISTERED. ALL NEEDS MET. NO ACUTE CHANGES NOTED DURING SHIFT. MIDLINE ON RIGHT UPPER ARM INTACT PATENT. SITTER AT BEDSIDE. WILL ENDORSE CARE TO PM SHIFT.
--- NOTE | 2019-10-13 19:15 | NUR ---
MS RN OPENING NOTE BEDSIDE REPORT RECIEVED FROM SARA CALDERÓN. PATIENT IN BED RESTING NO APPARENT DISTRESS, FAMILY AT THE BEDSIDE. PATIENT HAS BILATERAL MITTENS TO BOTH HANDS. MIDLINE ON RIGHT UPPER ARM INTACT PATENT. GT FEEDING INFUSING TO GTUBE. PLACEMENT CONFIRMED WITH AUSCULTAITON. NO RESIDUAL NOTED. GLUCERNA RUNNING AT 50 ML/HR. WILL CONT TO MONITOR.
[2019-10-13] MEDS: DOCUSATE SODIUM 100 MG CAPSULE PO SCH (22:00)
--- NOTE | 2019-10-13 22:00 | NUR ---
heparin held patient has some signs of bleeding on her upper arms from scraches. will follow up with md.
[2019-10-13] MEDS ORDERED: VANCOMYCIN 500 MG in IV D5W 100 ML IV SCH (23:00)
[2019-10-13] MEDS: INSULIN GLARGINE, 100 UNIT/ML CARTRIDGE SQ SCH (23:49)
[2019-10-13] MEDS: INSULIN REGULAR, HUMAN 100 UNIT/ML 3 ML VIAL SQ PRN (23:50)
[2019-10-13] MEDS: LATANOPROST EYE DROP 0.005% 2.5 ML BOTTLE EACHEYE SCH (23:54)
--- NOTE | 2019-10-14 00:01 | NUR ---
spoke with kandace orlandoing heparin ordered and informed of patient family request to have benadryl ordered for patient itching. states that heparin necsessar for patient. but to ocnt monitoring for bleeding. new order for benadryl recieved.
[2019-10-14] MEDS: diphenhydrAMINE HCL 25 MG CAPSULE PO PRN (00:46)
--- NOTE | 2019-10-14 00:47 | NUR ---
patient was found tugging on gtube. and with mittens removed. kandace called and new order for restraints acute bilateral soft wrist received.
--- NOTE | 2019-10-14 00:48 | NUR ---
gtube found to be leaking g tube has small perforation hole at the top. informed and asked brittany charge nurse for help in addressing this issue.l gtube was snipped at top and hollie placed past site of hole. will cont to monitor. placement checked with auscultaion benadryl administered prn for itching. tube feeding restarted. will cont to monitor.
--- NOTE | 2019-10-14 01:17 | NUR ---
RN PM NURSING NOTES. when reposition patient gtube became dislodged. dr. jeronimo called. new orders recieved. gtube site had 16gr fc inserted to maintain site. new orders to stop feeding and to start ivf given.
[2019-10-14] MEDS ORDERED: IV D5/0.45 NACL 1,000 ML IV ONE (01:30)
[2019-10-14 03:00] VITALS: BP 151/92
[2019-10-14] MEDS: PIPERACILLIN /TAZOBACTAM 3.375 G in IV D5W 50 ML IV SCH ×3 (04:30→15:49)
[2019-10-14 06:33] LABS: BASOPHILS % (AUTO) 0.4 % (0.0-2.0); EOSINOPHILS % (AUTO) 12.3 % (0.0-6.0); HEMATOCRIT 35 % (33-45); HEMOGLOBIN 11.5 g/dL (11.5-14.8); LYMPHOCYTES # (AUTO) 1.8 /CMM (0.8-4.8); LYMPHOCYTES % (AUTO) 28.1 % (20.0-44.0); MEAN CORPUSCULAR HGB CONC 33 g/dl (31.0-36.0); MEAN CORPUSCULAR VOLUME 96 fL (82-100); MONOCYTES # (AUTO) 0.6 /CMM (0.1-1.30); MONOCYTES % (AUTO) 9.4 % (2.0-12.0); NEUTROPHILS # (AUTO) 3.1 /CMM (1.8-8.9); NEUTROPHILS % (AUTO) 49.8 % (43.0-81.0); PLATELET COUNT (AUTO) 147 /CMM (150-450); RED BLOOD CELL COUNT(AUTO) 3.61 MIL/uL (4.0-5.2); WHITE BLOOD COUNT (AUTO) 6.3 K/uL (4.3-11.0)
[2019-10-14 07:01] LABS: ALBUMIN 2.1 g/dL (3.4-5.0); BILIRUBIN,TOTAL 0.3 mg/dL (0.2-1.0); CALCIUM, SERUM 8.2 mg/dL (8.5-10.1); CREATININE 1.9 mg/dL (0.6-1.3); MAGNESIUM 2.6 mg/dL (1.8-2.4); PHOSPHORUS 2.9 mg/dL (2.5-4.9); POTASSIUM 3.3 mmol/L (3.5-5.1); TOTAL PROTEIN, SERUM 6.5 g/dL (6.4-8.2)
--- NOTE | 2019-10-14 07:05 | NUR ---
ms rn received on bed, awake,non verbal patient, awake,alert,not in any for of distress, respirations even and unlabored,no sob noted,all needs attended.
[2019-10-14] MEDS: BLOOD SUGAR DIAGNOSTIC 1 EACH STRIP IN SCH ×3 (07:12→18:25)
[2019-10-14] MEDS: PANTOPRAZOLE 40 MG TABLET.DR PO SCH (07:30)
[2019-10-14 08:00] VITALS: BP 115/59
--- NOTE | 2019-10-14 08:00 | NUR ---
ms rn received w/ a temporary g tube alcala , awake ,not in any form of distress, respirations even and unlabored,no sob noted, lungs are diminished,abdomen soft,will monitor patient.
[2019-10-14] MEDS: LEVETIRACETAM SOL (5 ML) 100 MG/ML UDC GT SCH (09:00)
[2019-10-14] MEDS: BENAZEPRIL HCL 5 MG TABLET GT SCH ×2 (09:00→17:00)
[2019-10-14] MEDS: ASPIRIN 81 MG TAB.CHEW PO SCH (09:00)
[2019-10-14] MEDS: THIAMINE HCL 100 MG TABLET GT SCH (09:00)
[2019-10-14] MEDS: MULTIVITAMINS,THERAGRAN 1 UDTAB TABLET GT SCH (09:00)
[2019-10-14] MEDS: CARVEDILOL 12.5 MG TABLET GT SCH ×2 (09:00→17:00)
--- NOTE | 2019-10-14 09:00 | NUR ---
ms rn npo at this time, patient needs to be seen by gi due to dislodge gtube.
[2019-10-14] MEDS: HEPARIN SODIUM, PORCINE 5000 UNITS/1 ML VIAL SQ SCH (09:06)
[2019-10-14] MEDS: DICLOFENAC 0.1% OPTH DROPS 5 ML BOTTLE OP SCH (09:13)
[2019-10-14] MEDS ORDERED: PIPE3.379 IV (11:43)
--- NOTE | 2019-10-14 12:00 | NUR ---
ms rn was seen by dr. garner, was aware for g tube, will contact shazia to reinsert.
[2019-10-14] MEDS ORDERED: POTASSIUM CHLORIDE 10 MEQ TABLET.SA PO ONE (13:00)
[2019-10-14] MEDS ORDERED: POTASSIUM CL. PREMIX PERIPHER. 50 ML IV SCH (14:45)
[2019-10-14] MEDS ORDERED: DIATR MEGLU/DIATRIZOATE SODIUM 30 ML BOTTLE (GASTROGRAPHIN) ONE (15:12)
--- NOTE | 2019-10-14 15:30 | NUR ---
ms echeverria new g tube was inserted by shazia, waiting for result.
[2019-10-14 16:00] VITALS: BP 128/53
[2019-10-14 17:00] VITALS: BP 115/59
--- NOTE | 2019-10-14 19:00 | NUR ---
MS RN NOTES: RECEIVED PATIENT Patient in bed, appears calm, awake. On room air, tolerating well. Patient to be discharged today per report, Awaiting transport.
--- NOTE | 2019-10-14 21:20 | NUR ---
MS RN NOTES: DISCHARGE Patient has been cleared for discharge to SNF by . VS remains stable, patient is awake. OLIVIA midline left in place for IV antibiotic infusion at the facility. Report was given to Jana/BEKA per Medina/STEPHANE AM nurse. Patient left hosp in stable condition via ambulance.
== END 2019-10-14 21:20 | DRG 871 ==
LOC: ER 17:18 → TELE 21:14 → MED 10-11 10:15
PROVIDERS: ADMIT Nurse Practitioner Acute Care; ATTEND Internal Medicine
PROC: 05H933Z Insertion of Infusion Device into Right Brachial Vein, Percutaneous Approach (ICD-10-PCS; principal; 2019-10-13)
PROC: 0D20XUZ Change Feeding Device in Upper Intestinal Tract, External Approach (ICD-10-PCS; 2019-10-14)
DX: A41.9 Sepsis, unspecified organism (principal); G93.41 Metabolic encephalopathy; I21.A1 Myocardial infarction type 2; N17.0 Acute kidney failure with tubular necrosis; R53.2 Functional quadriplegia; N18.6 End stage renal disease; J15.9 Unspecified bacterial pneumonia; E44.0 Moderate protein-calorie malnutrition; I13.11 Hypertensive heart and chronic kidney disease without heart failure, with stage 5 chronic kidney disease, or end stage renal disease; N39.0 Urinary tract infection, site not specified; D68.59 Other primary thrombophilia; I69.354 Hemiplegia and hemiparesis following cerebral infarction affecting left non-dominant side; G40.909 Epilepsy, unspecified, not intractable, without status epilepticus; D69.6 Thrombocytopenia, unspecified; E11.22 Type 2 diabetes mellitus with diabetic chronic kidney disease; F03.90 Unspecified dementia, unspecified severity, without behavioral disturbance, psychotic disturbance, mood disturbance, and anxiety; Z82.49 Family history of ischemic heart disease and other diseases of the circulatory system; Z79.899 Other long term (current) drug therapy; M19.90 Unspecified osteoarthritis, unspecified site; K21.9 Gastro-esophageal reflux disease without esophagitis; I25.10 Atherosclerotic heart disease of native coronary artery without angina pectoris; I25.2 Old myocardial infarction; E78.5 Hyperlipidemia, unspecified; Z86.718 Personal history of other venous thrombosis and embolism; Z99.2 Dependence on renal dialysis; Z79.4 Long term (current) use of insulin; H40.9 Unspecified glaucoma; D63.8 Anemia in other chronic diseases classified elsewhere; B96.89 Other specified bacterial agents as the cause of diseases classified elsewhere; Z66 Do not resuscitate; I69.320 Aphasia following cerebral infarction; R09.02 Hypoxemia; Y95 Nosocomial condition
CPT/HCPCS: 36415; 71045-TC; 74018; 76770-TC; 80048-TC; 80053-TC; 80061-TC; 80076-TC; 80202-TC; 81000-TC; 82962-TC; 83605-TC; 83735-TC; 83880; 84100-TC; 84443-TC; 84484-TC; 85025-TC; 85730-TC; 87040-TC; 87081-TC; 87086-TC; 93307-TC; 95819-TC; A4217; G0378; J0696; J1644; J1815; J1940; J1953; J2543; J3370; J3480; J7050; J7060; Q0163; Q9963